=== PATIENT | male | born 1930 | race Two or more races ===

== ENCOUNTER 2019-09-16 15:32 | Inpatient (IN) | payer MEDICARE, MEDICAID ==
[~2019-09-16] VITALS: Ht 167.6 cm; Wt 66.5 kg
[~2019-09-16 15:32] MED LIST: AMLO10TA13 PO; CALC667C5 PO; HYDR50TA15 PO; MET50T PO
[2019-09-16 16:13] LABS: Urine Bacteria NONE SEEN /hpf (None Seen); Urine Blood TRACE /uL (Negative); Urine Specific Gravity 1.012 (1.001-1.035); Urine WBC 2 /hpf (0 - 3)
[2019-09-16 16:55] LABS: Red Blood Cells 2.05 10^6/uL (4.5-5.90)
[2019-09-16 16:57] LABS: Hematocrit 21.4 % (41.0-53.0); Mean Corpuscular Hemoglobin 32.3 pg (28.0-32.0); Mean Corpuscular Volume 104.2 fL (80.0-100.0)
[2019-09-16 16:58] LABS: Platelet Count (auto) 22 10^3/uL (140-450); Red Cell Distribution Width 16.3 % (11.8-14.3)
[2019-09-16 17:04] LABS: Albumin 3.2 g/dL (3.4-5.0); Calcium 8.5 mg/dL (8.5-10.1); Potassium 4.3 mmol/L (3.5-5.1)
[2019-09-16 17:07] LABS: BUN/Creatinine Ratio 5.8; Bilirubin, Total 0.7 mg/dL (0.2-1.0)
[2019-09-16 17:08] LABS: Hemoglobin 6.6 g/dL (13.5-17.5); White Blood Cell 117.1 10^3/uL (4.4-10.8)
[2019-09-16 17:09] LABS: Basophils % (manual) 0 (0.0-2.0); Eosinophils % (manual) 0 (0-7); Metamyelocytes % 0; Myelocytes % 0; Promyelocytes % 0; Reactive Lymphocytes 0
[2019-09-16] MEDS ORDERED: SODIUM CHLORIDE 0.9% 1,000 ML IV ONE ×2 (18:31→19:15)
[2019-09-16 18:42] LABS: Band Neutrophils % (manual) 1; Blast Cells 7; Lymphocytes % (manual) 87 (10.0-50.0); Monocytes % (manual) 2 (0-12)
[2019-09-16 19:11] LABS: Amylase 96 U/L (25-115); Lipase 125 U/L (73-393)
[2019-09-16 19:57] LABS: INR 1.04 (0.9-1.15); Partial Thromboplastin Time 25.4 sec (23.64-32.05)
[2019-09-16 23:10] VITALS: BP 173/57
[2019-09-16 23:15] VITALS: BP 164/58
[2019-09-16 23:20] VITALS: BP 180/54
[2019-09-16 23:25] VITALS: BP 167/52
[2019-09-16 23:40] VITALS: BP 165/56
[2019-09-17] VITALS (12 sets, daily range): BP systolic 100–183; BP diastolic 49–75
[2019-09-17] MEDS ORDERED: ONDANSETRON HCL 4 MG/2 ML VIAL IV PRN (02:00)
[2019-09-17] MEDS ORDERED: ACETAMINOPHEN 325 MG TAB PO PRN (02:00)
[2019-09-17] MEDS ORDERED: cloNIDine HCL 0.1 MG TAB PO ONE (05:00)
[2019-09-17 05:54] LABS: Red Cell Distribution Width 18.1 % (11.8-14.3)
[2019-09-17 05:59] LABS: Hematocrit 26.9 % (41.0-53.0); Hemoglobin 8.6 g/dL (13.5-17.5); Mean Corpuscular Hemoglobin 31.2 pg (28.0-32.0); Mean Corpuscular Hgb Conc. 32.1 g/dL (32.0-36.0); Mean Corpuscular Volume 97.2 fL (80.0-100.0); Red Blood Cells 2.77 10^6/uL (4.5-5.90)
[2019-09-17 06:14] LABS: Potassium 4.3 mmol/L (3.5-5.1)
[2019-09-17 06:29] LABS: BUN/Creatinine Ratio 6.7; Calcium 8.5 mg/dL (8.5-10.1)
[2019-09-17 06:35] LABS: Platelet Count (auto) 22 10^3/uL (140-450); White Blood Cell 117.8 10^3/uL (4.4-10.8)
[2019-09-17 06:37] LABS: Basophils % (manual) 0 (0.0-2.0); Metamyelocytes % 0; Myelocytes % 0; Promyelocytes % 0; Reactive Lymphocytes 0
[2019-09-17 08:08] LABS: Band Neutrophils % (manual) 1; Blast Cells 1; Eosinophils % (manual) 1 (0-7); Lymphocytes % (manual) 88 (10.0-50.0); Monocytes % (manual) 2 (0-12)
[2019-09-17] MEDS ORDERED: SODIUM CHL 0.9% 1000 ML BAG XX ONE (12:45)
[2019-09-17] MEDS ORDERED: hydrALAZINE HCL 25 MG TAB PO ONE (15:30)
[2019-09-17] MEDS ORDERED: METOPROLOL TARTRATE 50 MG TAB PO ONE (15:30)
[2019-09-17] MEDS ORDERED: amLODIPine BESYLATE 5 MG TAB PO ONE (15:30)
[2019-09-17] MEDS ORDERED: VANCOMYCIN HCL 500MG/5ML ORAL SOL GT ONE (15:45)
[2019-09-17] MEDS ORDERED: CIPROFLOXACIN 400MG/200ML 200 ML IV ONE (15:45)
[2019-09-17] MEDS ORDERED: metroNIDAZOLE 500 MG TAB PO ONE (15:45)
[2019-09-17] MEDS ORDERED: VANCOMYCIN HCL 125MG/5ML ORAL SOL PO ONE (16:00)
[2019-09-17] MEDS ORDERED: metroNIDAZOLE 500MG/100ML 100 ML IV ONE (16:00)
[2019-09-17] MEDS ORDERED: AMIODARONE HCL 150 MG in D5W 5% 100 ML IV ONE (17:30)
[2019-09-17] MEDS ORDERED: VANCOMYCIN HCL 500MG/5ML ORAL SOL PO SCH (22:00)
[2019-09-17] MEDS ORDERED: metroNIDAZOLE 500 MG TAB PO SCH (22:00)
[2019-09-17] MEDS: METOPROLOL TARTRATE 50 MG TAB PO SCH (22:09)
[2019-09-17] MEDS: VANCOMYCIN HCL 125MG/5ML ORAL SOL PO SCH (22:10)
[2019-09-17] MEDS: hydrALAZINE HCL 25 MG TAB PO SCH (22:10)
[2019-09-17] MEDS: metroNIDAZOLE 500MG/100ML 100 ML IV SCH (22:11)
[2019-09-18] VITALS (12 sets, daily range): BP systolic 103–159; BP diastolic 45–83
[2019-09-18] MEDS: VANCOMYCIN HCL 125MG/5ML ORAL SOL PO SCH ×4 (05:50→21:46)
[2019-09-18] MEDS: metroNIDAZOLE 500MG/100ML 100 ML IV SCH ×3 (05:50→21:46)
[2019-09-18] MEDS: hydrALAZINE HCL 25 MG TAB PO SCH ×3 (05:51→21:46)
[2019-09-18 06:46] LABS: % Iron Saturation 96.4 % (20-55)
[2019-09-18 07:07] LABS: Ferritin 1095.5 ng/mL (10-322)
[2019-09-18 07:08] LABS: Folate (Folic Acid) 16.96 ng/mL (5.38-24)
[2019-09-18 08:47] LABS: Free T4 (Free Thyroxine) 1.02 ng/dL (0.89-1.76)
[2019-09-18 08:48] LABS: Free T3 2.95 pg/mL (2.3-4.2)
[2019-09-18] MEDS: CIPROFLOXACIN 400MG/200ML 200 ML IV SCH (09:08)
[2019-09-18] MEDS: METOPROLOL TARTRATE 50 MG TAB PO SCH ×2 (09:09→21:46)
[2019-09-18] MEDS: amLODIPine BESYLATE 5 MG TAB PO SCH (09:09)
[2019-09-18 14:11] LABS: Red Cell Distribution Width 18.1 % (11.8-14.3)
[2019-09-18 14:17] LABS: Hematocrit 25.9 % (41.0-53.0); Mean Corpuscular Hgb Conc. 30.8 g/dL (32.0-36.0); Mean Corpuscular Volume 97.4 fL (80.0-100.0); Red Blood Cells 2.66 10^6/uL (4.5-5.90)
[2019-09-18 14:27] LABS: Albumin 2.8 g/dL (3.4-5.0); Potassium 3.8 mmol/L (3.5-5.1)
[2019-09-18 14:31] LABS: Bilirubin, Total 0.5 mg/dL (0.2-1.0); Total Protein 6.1 g/dL (6.4-8.2); White Blood Cell 101.1 10^3/uL (4.4-10.8)
[2019-09-18 14:32] LABS: Platelet Count (auto) 11 10^3/uL (140-450)
[2019-09-18 14:46] LABS: Band Neutrophils % (manual) 0; Basophils % (manual) 0 (0.0-2.0); Blast Cells 0; Metamyelocytes % 0; Myelocytes % 0; Promyelocytes % 0; Reactive Lymphocytes 0
[2019-09-18 14:51] LABS: Eosinophils % (manual) 1 (0-7); Lymphocytes % (manual) 85 (10.0-50.0); Monocytes % (manual) 3 (0-12)
[2019-09-18] MEDS ORDERED: ALLOPURINOL 100 MG TAB PO SCH (19:15)
[2019-09-18] MEDS ORDERED: DEXTROSE (50%) 50ML SYRG IV PRN (19:15)
[2019-09-18] MEDS: InsuLIN REG 1unit/0.01ml Soln (100units/ml) SC SCH (22:00)
[2019-09-18] MEDS: ACCU-CHEK COMFORT CURVE STRIP VI SCH (22:02)
[2019-09-19] VITALS (7 sets, daily range): BP systolic 88–122; BP diastolic 45–57
[2019-09-19] MEDS ORDERED: SODIUM CHLORIDE 0.9% 500 ML IV ONE (05:30)
[2019-09-19] MEDS: VANCOMYCIN HCL 125MG/5ML ORAL SOL PO SCH (05:32)
[2019-09-19] MEDS: metroNIDAZOLE 500MG/100ML 100 ML IV SCH (05:32)
[2019-09-19] MEDS: hydrALAZINE HCL 25 MG TAB PO SCH ×3 (05:33→21:45)
[2019-09-19 06:01] LABS: Hemoglobin 7.3 g/dL (13.5-17.5); Red Cell Distribution Width 17.8 % (11.8-14.3)
[2019-09-19 06:11] LABS: Hematocrit 22.7 % (41.0-53.0); Mean Corpuscular Hemoglobin 31.2 pg (28.0-32.0); Mean Corpuscular Hgb Conc. 32.3 g/dL (32.0-36.0); Mean Corpuscular Volume 96.6 fL (80.0-100.0); Platelet Count (auto) 27 10^3/uL (140-450); Red Blood Cells 2.35 10^6/uL (4.5-5.90)
[2019-09-19 06:21] LABS: Potassium 3.6 mmol/L (3.5-5.1)
[2019-09-19 06:28] LABS: Albumin 2.9 g/dL (3.4-5.0); BUN/Creatinine Ratio 6.2; Bilirubin, Total 0.6 mg/dL (0.2-1.0); Calcium 7.8 mg/dL (8.5-10.1)
[2019-09-19] MEDS: InsuLIN REG 1unit/0.01ml Soln (100units/ml) SC SCH ×4 (06:41→21:54)
[2019-09-19] MEDS: ACCU-CHEK COMFORT CURVE STRIP VI SCH ×4 (06:42→21:46)
[2019-09-19 06:58] LABS: Basophils % (manual) 0 (0.0-2.0); Eosinophils % (manual) 0 (0-7); Metamyelocytes % 0; Myelocytes % 0; Promyelocytes % 0; Reactive Lymphocytes 0; White Blood Cell 79.9 10^3/uL (4.4-10.8)
[2019-09-19] MEDS ORDERED: SODIUM CHL 0.9% 1000 ML BAG XX ONE (07:00)
[2019-09-19 07:55] LABS: Band Neutrophils % (manual) 2; Blast Cells 1; Lymphocytes % (manual) 90 (10.0-50.0); Monocytes % (manual) 3 (0-12)
[2019-09-19] MEDS: METOPROLOL TARTRATE 50 MG TAB PO SCH ×2 (10:00→21:45)
[2019-09-19] MEDS: amLODIPine BESYLATE 5 MG TAB PO SCH (10:00)
[2019-09-19] MEDS: CIPROFLOXACIN 400MG/200ML 200 ML IV SCH (10:50)
[2019-09-19] MEDS: predniSONE 20 MG TAB PO SCH (10:51)
[2019-09-19] MEDS ORDERED: metroNIDAZOLE 500MG/100ML 100 ML IV SCH (17:00)
[2019-09-19] MEDS ORDERED: VANCOMYCIN HCL 125MG/5ML ORAL SOL PO SCH (18:00)
[2019-09-19] MEDS ORDERED: LOPERAMIDE HCL 2 MG CAP PO ONE (20:15)
[2019-09-19] MEDS ORDERED: EPOETIN ALFA 4,000 UNIT/ML VL SC ONE (21:00)
[2019-09-19] MEDS: metroNIDAZOLE 500 MG TAB PO SCH (21:44)
[2019-09-20 05:26] LABS: Hemoglobin 7.7 g/dL (13.5-17.5); Mean Corpuscular Volume 96.5 fL (80.0-100.0)
[2019-09-20 05:31] LABS: Hematocrit 24.1 % (41.0-53.0); Mean Corpuscular Hemoglobin 30.7 pg (28.0-32.0); Mean Corpuscular Hgb Conc. 31.8 g/dL (32.0-36.0); Platelet Count (auto) 27 10^3/uL (140-450); Red Cell Distribution Width 17.9 % (11.8-14.3)
[2019-09-20 05:34] LABS: Band Neutrophils % (manual) 0; Basophils % (manual) 0 (0.0-2.0); Blast Cells 0; Eosinophils % (manual) 0 (0-7); Metamyelocytes % 0; Monocytes % (manual) 0 (0-12); Myelocytes % 0; Promyelocytes % 0; White Blood Cell 98.8 10^3/uL (4.4-10.8)
[2019-09-20] MEDS: hydrALAZINE HCL 25 MG TAB PO SCH ×2 (05:57→14:00)
[2019-09-20 06:00] VITALS: BP 108/48
[2019-09-20] MEDS: InsuLIN REG 1unit/0.01ml Soln (100units/ml) SC SCH ×2 (06:12→11:30)
[2019-09-20] MEDS: metroNIDAZOLE 500 MG TAB PO SCH ×2 (06:12→14:06)
[2019-09-20] MEDS: ACCU-CHEK COMFORT CURVE STRIP VI SCH ×2 (06:12→13:03)
[2019-09-20 08:49] LABS: Hepatitis B Surface Antibody Negative
[2019-09-20 09:02] VITALS: BP 106/53
[2019-09-20] MEDS ORDERED: LOPERAMIDE HCL 2 MG CAP PO PRN (09:45)
[2019-09-20] MEDS: amLODIPine BESYLATE 5 MG TAB PO SCH (10:00)
[2019-09-20] MEDS: METOPROLOL TARTRATE 50 MG TAB PO SCH ×2 (10:00→14:07)
[2019-09-20 10:07] LABS: Lymphocytes % (manual) 91 (10.0-50.0)
[2019-09-20 10:08] LABS: Reactive Lymphocytes 5
[2019-09-20] MEDS: predniSONE 20 MG TAB PO SCH (10:25)
[2019-09-20 13:00] VITALS: BP 114/53
[2019-09-20 13:04] LABS: Hepatitis B Surface Antigen Negative (Negative); Hepatitis C Antibody Negative (Negative)
== END 2019-09-20 15:55 | disposition home or self-care (01) | DRG 391 ==
LOC: ER 15:32 → OVERFLOW 15:33 → TELE-EAST 09-17 21:14
PROVIDERS: ADMIT Hospitalist; ATTEND Internal Medicine Nephrology
PROC: 30240N1 Transfusion of Nonautologous Red Blood Cells into Central Vein, Open Approach (ICD-10-PCS; principal; 2019-09-16)
PROC: 5A1D70Z Performance of Urinary Filtration, Intermittent, Less than 6 Hours Per Day (ICD-10-PCS; 2019-09-17)
PROC: 30243R1 Transfusion of Nonautologous Platelets into Central Vein, Percutaneous Approach (ICD-10-PCS; 2019-09-18)
PROC: 5A1D70Z Performance of Urinary Filtration, Intermittent, Less than 6 Hours Per Day (ICD-10-PCS; 2019-09-19)
DX: A08.4 Viral intestinal infection, unspecified (principal); N18.6 End stage renal disease; I13.2 Hypertensive heart and chronic kidney disease with heart failure and with stage 5 chronic kidney disease, or end stage renal disease; C91.10 Chronic lymphocytic leukemia of B-cell type not having achieved remission; I50.30 Unspecified diastolic (congestive) heart failure; E86.0 Dehydration; I48.0 Paroxysmal atrial fibrillation; R19.5 Other fecal abnormalities; R16.1 Splenomegaly, not elsewhere classified; D69.6 Thrombocytopenia, unspecified; I48.91 Unspecified atrial fibrillation; D50.0 Iron deficiency anemia secondary to blood loss (chronic); Z99.2 Dependence on renal dialysis; Z90.49 Acquired absence of other specified parts of digestive tract; Z82.49 Family history of ischemic heart disease and other diseases of the circulatory system; Z79.899 Other long term (current) drug therapy; Z91.19 Patient's noncompliance with other medical treatment and regimen
CPT/HCPCS: 36415; 36430; 71045; 74176; 80048; 80053; 80061; 81001; 82150; 82270; 82607; 82705; 82728; 82746; 82962; 83036; 83540; 83550; 83605; 83615; 83690; 83735; 84439; 84443; 84481; 84484; 84550; 85007; 85025; 85027; 85048; 85610; 85730; 86706; 86803; 86850; 86880; 86900; 86901; 86920; 87040; 87045; 87081; 87177; 87340; 87427; 87493; 90935; 93005; 93306; 96361; 96374; G0378; J2405; J3490; J7060

== ENCOUNTER 2019-10-02 12:35 | Inpatient (IN) | payer MEDICARE, MEDICAID ==
[~2019-10-02] VITALS: Ht 167.6 cm; Wt 66.0 kg
[2019-10-02 14:14] LABS: BUN/Creatinine Ratio 12.6; Calcium 7.3 mg/dL (8.5-10.1)
[2019-10-02 14:17] LABS: Potassium 6.9 mmol/L (3.5-5.1)
[2019-10-02 14:22] LABS: Bilirubin, Total 0.7 mg/dL (0.2-1.0); Total Protein 6.2 g/dL (6.4-8.2)
[2019-10-02] MEDS ORDERED: SODIUM BICARBONATE 8.4 % INJ 50ML VIAL IV ONE (14:30)
[2019-10-02] MEDS ORDERED: ALBUTEROL SULF 2.5 MG/0.5ML(0.5%) NEB SOLN HHN ONE (14:30)
[2019-10-02] MEDS ORDERED: CALCIUM GLUC 4.65meq/50ml D5AE 50 ML IV ONE (14:30)
[2019-10-02] MEDS ORDERED: SODIUM CHL 0.9% 1000 ML BAG XX ONE (15:00)
[2019-10-02 15:15] LABS: Hematocrit 17.8 % (41.0-53.0); Mean Corpuscular Hemoglobin 27.3 pg (28.0-32.0); Mean Corpuscular Hgb Conc. 29.7 g/dL (32.0-36.0); Mean Corpuscular Volume 92.1 fL (80.0-100.0); Platelet Count (auto) 23 10^3/uL (140-450); Red Blood Cells 1.93 10^6/uL (4.5-5.90); Red Cell Distribution Width 18.4 % (11.8-14.3)
[2019-10-02 15:47] LABS: Hemoglobin 5.3 g/dL (13.5-17.5); White Blood Cell 429.4 10^3/uL (4.4-10.8)
[2019-10-02 15:48] LABS: Band Neutrophils % (manual) 0; Basophils % (manual) 0 (0.0-2.0); Eosinophils % (manual) 0 (0-7); Metamyelocytes % 0; Myelocytes % 0; Promyelocytes % 0
[2019-10-02] MEDS ORDERED: DEXTROSE (50%) 50ML SYRG IV ONE (17:30)
[2019-10-02] MEDS ORDERED: ACETAMINOPHEN 500 MG TAB PO PRN (17:30)
[2019-10-02] MEDS ORDERED: LABETALOL HCL 5 MG/ML 4ML SYRINGE IV PRN (17:30)
[2019-10-02] MEDS ORDERED: ONDANSETRON HCL 4 MG/2 ML VIAL IV PRN (17:30)
[2019-10-02] MEDS ORDERED: SODIUM ZIRCONIUM CYCL 10 GM PAK PO ONE (17:30)
[2019-10-02] MEDS ORDERED: MORPHINE SULF INJ 2 MG/ML SYRINGE 1ML IV PRN ×2 (17:30)
[2019-10-02] MEDS ORDERED: HYDROcodone-ACET 5/325MG TAB PO PRN (17:30)
[2019-10-02] MEDS ORDERED: NITROGLYCERIN 0.4 MG SL TAB SL PRN (17:30)
[2019-10-02] MEDS ORDERED: InsuLIN REG 1unit/0.01ml Soln (100units/ml) IV ONE (17:30)
[2019-10-02 19:37] LABS: Lymphocytes % (manual) 82 (10.0-50.0)
[2019-10-02 19:38] LABS: Blast Cells 1; Monocytes % (manual) 2 (0-12); Reactive Lymphocytes 10
[2019-10-02] MEDS ORDERED: ALBUMIN 25% 100 ML IV ONE (20:00)
[2019-10-02 22:30] LABS: BUN/Creatinine Ratio 11.9; Calcium 7.4 mg/dL (8.5-10.1)
[2019-10-02 22:43] LABS: Potassium 5.7 mmol/L (3.5-5.1)
[2019-10-02 23:15] VITALS: BP 121/56
--- NOTE | 2019-10-02 23:15 | NUR ---
Telemetry admit from [facility] CARLIEINEZ admitted to Telemetry unit. Patient oriented to CONSTANZA LOPEZ OCA, primary RN, unit, room, bed, and unit policies regarding patient care and visiting hours. Patient now on continuous telemetry monitoring, tele box #68 and telemetry reading on arrival to unit is sinus tachycardia 104. Patient weighed by bedscale and encouraged to call if they need something. All questions and concerns addressed, patient verbalized understanding. Bed in lowest locked position, call light within reach, side rails up x2, fall precautions in place. Will continue to monitor Q1hr and PRN.
[2019-10-03] VITALS (12 sets, daily range): BP systolic 96–143; BP diastolic 48–75
--- NOTE | 2019-10-03 07:45 | NUR ---
TELEMETRY RECEIVED CALL FROM MONITOR TECHS INFORMING ME PATIENT IS HAVING SHORT RUNS OF VTACH, COUPLETS, AND MULTIPLE PAUSES. PATIENT ASSESSED AND FOUND TO BE ASYMPTOMATIC AND STABLE. WILL NOTIFY MD AND CONTINUE TO MONITOR.
--- NOTE | 2019-10-03 08:00 | NUR ---
OPENING NOTE ASSUMED CARE OF PATIENT AWAKE AND ALERT X3. NO S/S OF DISTRESS NOTED OR COMPLAINTS OF PAIN. PATIENT UPDATED ON POC FOR THE DAY AND ALL QUESTIONS ANSWERED. BED IS IN LOWEST, LOCKED POSITION WITH SIDE RAILS UP X2 AND CALL LIGHT WITHIN REACH. WILL CONTINUE TO MONITOR Q1H AND PRN.
[2019-10-03 08:26] LABS: Hematocrit 19.4 % (41.0-53.0); Mean Corpuscular Hemoglobin 26.2 pg (28.0-32.0); Mean Corpuscular Hgb Conc. 28.9 g/dL (32.0-36.0); Mean Corpuscular Volume 90.7 fL (80.0-100.0); Red Blood Cells 2.14 10^6/uL (4.5-5.90)
[2019-10-03 08:28] LABS: Albumin 3.4 g/dL (3.4-5.0); Calcium 7.4 mg/dL (8.5-10.1)
--- NOTE | 2019-10-03 08:30 | NUR ---
CRITICAL LAB VALUE RECEIVED CALL FROM HEMATOLOGY FOR CRITICAL LAB VALUE OF A WBC 468.6 AND HGB 5.6. WILL PUT PAGE OUT TO TO NOTIFY.
[2019-10-03 08:31] LABS: BUN/Creatinine Ratio 9.5; Total Protein 6.3 g/dL (6.4-8.2)
[2019-10-03 08:36] LABS: Hemoglobin 5.6 g/dL (13.5-17.5); Platelet Count (auto) 19 10^3/uL (140-450); White Blood Cell 468.6 10^3/uL (4.4-10.8)
[2019-10-03 08:38] LABS: Band Neutrophils % (manual) 0; Basophils % (manual) 0 (0.0-2.0); Blast Cells 0; Eosinophils % (manual) 0 (0-7); Metamyelocytes % 0; Myelocytes % 0; Promyelocytes % 0
[2019-10-03 08:42] LABS: Potassium 6.4 mmol/L (3.5-5.1)
--- NOTE | 2019-10-03 08:44 | NUR ---
CRITICAL LAB VALUE RECEIVED CALL FROM CHEMISTRY REGARDING PATIENT CRITICAL POTASSIUM OF 6.4. WILL NOTIFY MD AND CONTINUE TO MONITOR.
--- NOTE | 2019-10-03 10:15 | NUR ---
PAGED PAGED DR LOPEZ REGARDING CRITICAL LABS, ARRYTHMIAS, AND FOR ORDERS. AWAITING CALL BACK.
[2019-10-03] MEDS: FAMOTIDINE 20 MG TAB PO SCH (10:37)
--- NOTE | 2019-10-03 11:00 | NUR ---
AT BEDSIDE DR UP AT BEDSIDE. UPDATED DAUGHTER TARUN BY TELEPHONE.
[2019-10-03 11:31] LABS: Lymphocytes % (manual) 94 (10.0-50.0); Monocytes % (manual) 1 (0-12); Reactive Lymphocytes 2
--- NOTE | 2019-10-03 11:40 | NUR ---
AT BEDSIDE DR ROMERO IN TO SEE PATIENT.
--- NOTE | 2019-10-03 11:45 | NUR ---
PAGED REPAGED DR LOPEZ REGARDING 6.4 POTASSIUM. AWAITING CALL BACK
--- NOTE | 2019-10-03 12:15 | NUR ---
DR LOPEZ RECEIVED CALL BACK FROM DR LOPEZ AND UPDATED HER ON PATIENT'S STATUS. SHE STATED SHE WILL PUT IN ORDER FOR PATIENT TO RECEIVE DIALYSIS TODAY.
--- NOTE | 2019-10-03 12:50 | NUR ---
DIALYSIS DIALYSIS NURSE AT BEDSIDE STARTING HD
--- NOTE | 2019-10-03 14:10 | NUR ---
PRBC 1 UNIT PRBC STARTED. VERIFIED WITH FELLOW RN AND UNIT IS BEING GIVEN BY DIALYSIS NURSE.
[2019-10-03] MEDS: methylPREDNISolone SOD SUCC 125 MG/2 ML VL IV SCH ×2 (14:40→21:40)
--- NOTE | 2019-10-03 15:50 | NUR ---
DIALYSIS END HD FINISHED AT 1550. 1,485 ML OUT. BP 143/70 WITH A HR OF 102. PATIENT TOLERATED WELL. WILL CONTINUE TO MONITOR.
--- NOTE | 2019-10-03 17:30 | NUR ---
FISTULA WHILE ROUNDING I NOTICED PATIENT'S LEFT ARM FISTULA HAD SATURATED THE DRESSING AND WAS DRIPPING ON THE FLOOR. PRESSURE HELD FOR 20 MINUTES SITE WOULD NOT STOP BLEEDING HEAVILY. SITE WRAPPED TIGHTLY. WILL MONITOR VERY CLOSELY.
[2019-10-03] MEDS: IBRUTINIB 280 MG PO SCH (18:07)
--- NOTE | 2019-10-03 19:30 | NUR ---
Opening Shift Note Assumed care of patient, awake and alert x4. No S/S of distress/SOB or pain. Call light is within reach, side rails up x2, bed is in lowest position, bed alarm is on. Dressing to right upper arm is C/D/I. Instructed on POC and to call for assist PRN, will continue to monitor for changes Q1hr and PRN.
[2019-10-04] VITALS (15 sets, daily range): BP systolic 114–145; BP diastolic 57–90
[2019-10-04] MEDS: methylPREDNISolone SOD SUCC 125 MG/2 ML VL IV SCH ×3 (05:37→21:35)
[2019-10-04 05:56] LABS: Hemoglobin 7.2 g/dL (13.5-17.5)
[2019-10-04 06:02] LABS: Hematocrit 22.3 % (41.0-53.0); Mean Corpuscular Hemoglobin 29.3 pg (28.0-32.0); Mean Corpuscular Hgb Conc. 32.3 g/dL (32.0-36.0); Mean Corpuscular Volume 90.6 fL (80.0-100.0); Red Blood Cells 2.46 10^6/uL (4.5-5.90); Red Cell Distribution Width 16.1 % (11.8-14.3)
[2019-10-04 06:15] LABS: Albumin 3.1 g/dL (3.4-5.0); BUN/Creatinine Ratio 9.7; Calcium 7.6 mg/dL (8.5-10.1); Potassium 4.9 mmol/L (3.5-5.1)
[2019-10-04 06:22] LABS: Total Protein 6.2 g/dL (6.4-8.2)
--- NOTE | 2019-10-04 06:28 | NUR ---
Critical Lab Received a call from Devonte Barbosa in lab, critical lab values for WBC: 368.0 and platelet count: 8. Value read back and verified. Will inform hospitalist.
[2019-10-04 06:29] LABS: Platelet Count (auto) 8 10^3/uL (140-450)
[2019-10-04 06:30] LABS: Basophils % (manual) 0 (0.0-2.0); Blast Cells 0; Eosinophils % (manual) 0 (0-7); Metamyelocytes % 0; Myelocytes % 0; Promyelocytes % 0
--- NOTE | 2019-10-04 06:47 | NUR ---
Fermín Mane MENTAL HEALTH PRACTITIONER called back, no new orders received, will endorse care to dayshift RN.
[2019-10-04 07:31] LABS: Band Neutrophils % (manual) 1; Lymphocytes % (manual) 89 (10.0-50.0); Monocytes % (manual) 1 (0-12); Reactive Lymphocytes 2
[2019-10-04 11:21] LABS: Mean Corpuscular Hemoglobin 29.5 pg (28.0-32.0); Mean Corpuscular Hgb Conc. 32.5 g/dL (32.0-36.0); Red Cell Distribution Width 16.4 % (11.8-14.3)
[2019-10-04 11:27] LABS: Hematocrit 20.3 % (41.0-53.0); Mean Corpuscular Volume 90.7 fL (80.0-100.0); Red Blood Cells 2.24 10^6/uL (4.5-5.90)
[2019-10-04 11:37] LABS: Hemoglobin 6.6 g/dL (13.5-17.5)
[2019-10-04 11:38] LABS: Platelet Count (auto) 14 10^3/uL (140-450); White Blood Cell 328.6 10^3/uL (4.4-10.8)
[2019-10-04 11:40] LABS: Albumin 3.1 g/dL (3.4-5.0); Band Neutrophils % (manual) 0; Basophils % (manual) 0 (0.0-2.0); Blast Cells 0; Calcium 7.5 mg/dL (8.5-10.1); Eosinophils % (manual) 0 (0-7); Metamyelocytes % 0; Myelocytes % 0; Potassium 4.4 mmol/L (3.5-5.1); Promyelocytes % 0
[2019-10-04 11:43] LABS: BUN/Creatinine Ratio 9.7; Bilirubin, Total 0.9 mg/dL (0.2-1.0); Total Protein 6.3 g/dL (6.4-8.2)
--- NOTE | 2019-10-04 11:46 | NUR ---
CRITICAL VALUE MD ROMERO MADE AWARE OF CRITICAL LAB VALUES NEW ORDERS NOTED FOR ONLY 1 UNIT PLT AND TO ORDER 2 UNITS PRBC, BLOOD BANK NOTIFIED
[2019-10-04 12:04] LABS: Lymphocytes % (manual) 91 (10.0-50.0); Monocytes % (manual) 2 (0-12); Reactive Lymphocytes 3
--- NOTE | 2019-10-04 13:52 | NUR ---
PLT TRANSFUSION STARTED ON PT
[2019-10-04] MEDS: IBRUTINIB 280 MG PO SCH (18:20)
--- NOTE | 2019-10-04 19:45 | NUR ---
Opening Shift Note Assumed care of patient, awake and alert. No S/S of distress/SOB or pain. Instructed on POC and to call for assist PRN, will continue to monitor for changes Q1hr and PRN.Blood transfusion is done, no side effect noted.
[2019-10-05] VITALS (12 sets, daily range): BP systolic 106–135; BP diastolic 55–74
--- NOTE | 2019-10-05 02:25 | NUR ---
Rport given to Gemma Hanson to assume the care, patient is resting eyes closed no distress.
--- NOTE | 2019-10-05 02:25 | NUR ---
Assumed care of patient. Report received by Lyric ROLON. Patient is sleepy but alert and oriented X 4, no S/S of SOB, pain, or distress. Bed is low, locked, with two side rails raised, and call baum is within reach. Patient connected to lunchroom monitor # 68 with HR 85 bpm. Instructed patient on POC and to call for assistance. Will continue to monitor Q 1 hour and PRN.
[2019-10-05] MEDS: methylPREDNISolone SOD SUCC 125 MG/2 ML VL IV SCH ×2 (05:59→13:50)
--- NOTE | 2019-10-05 06:00 | NUR ---
Received call from Pura dialysis nurse, she confirmed patient will be receiving dialysis today, stated she will obtain order from for dialysis to be done. Requested morning meds to be held prior to dialysis. Addendum: 10/05/19 at 0633 by COCO KIRBY RN RN Nurse Cyr.
--- NOTE | 2019-10-05 06:33 | NUR ---
Dialysis nurse at the bedside.
[2019-10-05 06:50] LABS: Hemoglobin 8.9 g/dL (13.5-17.5); Mean Corpuscular Hemoglobin 29.2 pg (28.0-32.0); Red Blood Cells 3.03 10^6/uL (4.5-5.90); Red Cell Distribution Width 16.2 % (11.8-14.3)
[2019-10-05 06:54] LABS: Hematocrit 26.7 % (41.0-53.0); Mean Corpuscular Hgb Conc. 33.2 g/dL (32.0-36.0)
[2019-10-05 07:09] LABS: Albumin 3.2 g/dL (3.4-5.0); Calcium 7.3 mg/dL (8.5-10.1)
[2019-10-05 07:13] LABS: BUN/Creatinine Ratio 12.7; Total Protein 6.2 g/dL (6.4-8.2)
[2019-10-05] MEDS ORDERED: SODIUM CHL 0.9% 1000 ML BAG XX ONE (07:15)
[2019-10-05 07:17] LABS: White Blood Cell 303.1 10^3/uL (4.4-10.8)
[2019-10-05 07:18] LABS: Platelet Count (auto) 15 10^3/uL (140-450)
[2019-10-05 07:20] LABS: Band Neutrophils % (manual) 0; Basophils % (manual) 0 (0.0-2.0); Blast Cells 0; Eosinophils % (manual) 0 (0-7); Metamyelocytes % 0; Myelocytes % 0; Promyelocytes % 0
--- NOTE | 2019-10-05 07:28 | NUR ---
Received critical lab value from Columba in lab: WBC 303.1, Platelet count 15, and Potassium 5.7. Will page hospitalist per hospital protocol.
[2019-10-05 07:29] LABS: Potassium 5.7 mmol/L (3.5-5.1)
--- NOTE | 2019-10-05 07:30 | NUR ---
Opening Shift Note Assumed care of patient, awake and alert. No S/S of distress/SOB or pain. Ongoing hemodialysis. NOted Amharic speaking only. Instructed on POC and to call for assist PRN, will continue to monitor for changes Q1hr and PRN.
--- NOTE | 2019-10-05 07:35 | NUR ---
Paged hospitalist Enedina Mane regarding critical lab values. -
--- NOTE | 2019-10-05 07:40 | NUR ---
CONCRETE ROD BUSTER Fermín Mane called back, informed him of critical lab values, confirmed that the patient is currently being dialyzed. no new orders received,
[2019-10-05 07:56] LABS: Lymphocytes % (manual) 90 (10.0-50.0); Monocytes % (manual) 2 (0-12); Reactive Lymphocytes 2
--- NOTE | 2019-10-05 09:55 | NUR ---
HD DONE, 2.5L FLUID OUT. BP 139/82MMHG, HR 80/MIN. PATIENT STABLE.
[2019-10-05] MEDS: FAMOTIDINE 20 MG TAB PO SCH (11:14)
--- NOTE | 2019-10-05 11:45 | NUR ---
DR Tsering Adam at bedside. Received verbal order to transfuse 1 more unit of platelet.
--- NOTE | 2019-10-05 12:50 | NUR ---
BLOOD TRANSFUSION OF PLATELET STARTED. WILL MONITOR.
--- NOTE | 2019-10-05 13:27 | NUR ---
WILL GIVE SCHEDULED SOLU-MEDROL IV AFTER PLATELET TRANSFUSION.
--- NOTE | 2019-10-05 13:49 | NUR ---
PLATELET TRANSFUSION DONE. PATIENT TOLERATED WELL.
--- NOTE | 2019-10-05 16:20 | NUR ---
assessment Patient is a 88 year old male who is confused. I have called patients next of kin Allison and left a message for a return call back. Waiting on return call now. Addendum: 10/05/19 at 1621 by Bev Flores SS Amended: Links added.
[2019-10-05] MEDS ORDERED: IBRUTINIB 280 MG PO SCH (18:00)
[2019-10-06 05:15] VITALS: BP 133/67
[2019-10-06 06:16] LABS: Hematocrit 24.7 % (41.0-53.0); Hemoglobin 8.3 g/dL (13.5-17.5); Mean Corpuscular Hgb Conc. 33.7 g/dL (32.0-36.0); Platelet Count (auto) 26 10^3/uL (140-450)
[2019-10-06 06:21] LABS: Mean Corpuscular Hemoglobin 29.9 pg (28.0-32.0); Mean Corpuscular Volume 88.6 fL (80.0-100.0); Red Blood Cells 2.79 10^6/uL (4.5-5.90); Red Cell Distribution Width 16.1 % (11.8-14.3)
[2019-10-06 06:27] LABS: Band Neutrophils % (manual) 0; Basophils % (manual) 0 (0.0-2.0); Blast Cells 0; Eosinophils % (manual) 0 (0-7); Metamyelocytes % 0; Myelocytes % 0; Promyelocytes % 0; White Blood Cell 244.7 10^3/uL (4.4-10.8)
--- NOTE | 2019-10-06 06:27 | NUR ---
Critical lab: Received a critical lab value of 244.7 WBC's. Improving from prior WBC.
[2019-10-06 06:30] LABS: Calcium 7.3 mg/dL (8.5-10.1); Potassium 3.7 mmol/L (3.5-5.1)
[2019-10-06 06:33] LABS: BUN/Creatinine Ratio 15.7; Total Protein 5.8 g/dL (6.4-8.2)
[2019-10-06 06:44] LABS: Lymphocytes % (manual) 94 (10.0-50.0); Monocytes % (manual) 1 (0-12); Reactive Lymphocytes 1
--- NOTE | 2019-10-06 07:22 | NUR ---
Opening Shift Note Assumed care of patient, awake and alert. Pt is Persian speaking only. No S/S of distress/SOB or pain. Instructed on POC and to call for assist PRN, will continue to monitor for changes Q1hr and PRN.
[2019-10-06] MEDS ORDERED: predniSONE 5 MG TAB PO SCH (08:00)
[2019-10-06 09:00] VITALS: BP 126/63
--- NOTE | 2019-10-06 09:45 | NUR ---
ROUNDING MD German ROMERO AT BEDSIDE. ALL QUESTIONS AND CONCERNS ADDRESSED AT THIS TIME.
[2019-10-06 10:00] VITALS: BP 126/63
[2019-10-06 13:00] VITALS: BP 138/57
--- NOTE | 2019-10-06 13:02 | NUR ---
DAUGHTER TARUN UPDATED ON POC AND DISCHARGE PLAN PASSWORD VERIFIED.
--- NOTE | 2019-10-06 14:23 | NUR ---
Discharge instructions given as ordered. Encourage to follow up with PMD as instructed. All questions and concerns addressed. Patient verbalized understanding. Medication reconciliation form completed and copy given to patient. Home medications held in Pharmacy returned to patient. IV removed with catheter intact, pressure dressing applied. Telemetry unit returned to ICU. Patient taken to vehicle via wheelchair with all personal belongings, accompanied by staff and family member. No distress noted at time of departure.
== END 2019-10-06 14:23 | disposition home or self-care (01) | DRG 811 ==
LOC: ER 12:35 → TELE 12:36 → TELE-WESTW 23:08
PROVIDERS: ADMIT Nurse Practitioner Acute Care; ATTEND Family Medicine
PROC: 5A1D70Z Performance of Urinary Filtration, Intermittent, Less than 6 Hours Per Day (ICD-10-PCS; principal; 2019-10-02)
PROC: 5A1D70Z Performance of Urinary Filtration, Intermittent, Less than 6 Hours Per Day (ICD-10-PCS; 2019-10-03)
PROC: 30233N1 Transfusion of Nonautologous Red Blood Cells into Peripheral Vein, Percutaneous Approach (ICD-10-PCS; 2019-10-03)
PROC: 30233R1 Transfusion of Nonautologous Platelets into Peripheral Vein, Percutaneous Approach (ICD-10-PCS; 2019-10-04)
PROC: 5A1D70Z Performance of Urinary Filtration, Intermittent, Less than 6 Hours Per Day (ICD-10-PCS; 2019-10-05)
DX: D64.9 Anemia, unspecified (principal); N18.6 End stage renal disease; C91.10 Chronic lymphocytic leukemia of B-cell type not having achieved remission; E44.0 Moderate protein-calorie malnutrition; I12.0 Hypertensive chronic kidney disease with stage 5 chronic kidney disease or end stage renal disease; E87.1 Hypo-osmolality and hyponatremia; E87.5 Hyperkalemia; E78.5 Hyperlipidemia, unspecified; E87.8 Other disorders of electrolyte and fluid balance, not elsewhere classified; I48.0 Paroxysmal atrial fibrillation; D69.6 Thrombocytopenia, unspecified; Z99.2 Dependence on renal dialysis; Z91.19 Patient's noncompliance with other medical treatment and regimen; Z87.891 Personal history of nicotine dependence; Z82.49 Family history of ischemic heart disease and other diseases of the circulatory system; Z68.23 Body mass index [BMI] 23.0-23.9, adult
CPT/HCPCS: 36415; 71045; 80048; 80053; 83010; 83615; 84484; 85007; 85025; 85027; 85045; 86850; 86880; 86900; 86901; 86920; 87081; 90935; 93005; 94640; G0378; J0610; J1642; J1815; P9047

== ENCOUNTER 2020-02-23 22:40 | Inpatient (IN) | payer MEDICARE, MEDICAID ==
[~2020-02-23] VITALS: Ht 157.5 cm; Wt 64.8 kg
[2020-02-24] VITALS (35 sets, daily range): BP systolic 85–147; BP diastolic 29–91
[2020-02-24 00:56] LABS: Hematocrit 16.4 % (41.0-53.0); Mean Corpuscular Hgb Conc. 30.5 g/dL (32.0-36.0); Mean Corpuscular Volume 91.8 fL (80.0-100.0); Platelet Count (auto) 75 10^3/uL (140-450); Red Blood Cells 1.79 10^6/uL (4.5-5.90)
[2020-02-24 01:09] LABS: BUN/Creatinine Ratio 10.6; Calcium 8.3 mg/dL (8.5-10.1); Magnesium 2.5 mg/dL (1.6-2.6)
[2020-02-24 01:10] LABS: White Blood Cell 438.3 10^3/uL (4.4-10.8)
[2020-02-24 01:13] LABS: Band Neutrophils % (manual) 0; Basophils % (manual) 0 (0.0-2.0); Eosinophils % (manual) 0 (0-7); Metamyelocytes % 0; Myelocytes % 0; Promyelocytes % 0; Reactive Lymphocytes 0
[2020-02-24 01:14] LABS: Potassium 8.8 mmol/L (3.5-5.1)
[2020-02-24 01:18] LABS: INR 1.51 (0.9-1.15); Partial Thromboplastin Time 32.8 sec (23.0-31.2); Total Protein 6.5 g/dL (6.4-8.2)
[2020-02-24] MEDS ORDERED: SODIUM BICARBONATE 8.4 % INJ 50ML VIAL IV ONE ×2 (01:30→16:15)
[2020-02-24] MEDS ORDERED: CALCIUM GLUC 4.65meq/50ml D5AE 50 ML IV ONE ×3 (01:30→16:15)
[2020-02-24] MEDS ORDERED: InsuLIN REG 1unit/0.01ml Soln (100units/ml) IV ONE ×3 (01:30→16:15)
[2020-02-24] MEDS ORDERED: SODIUM ZIRCONIUM CYCL 10 GM PAK PO ONE ×3 (01:30→16:30)
[2020-02-24] MEDS ORDERED: DEXTROSE (50%) 50ML SYRG IV ONE ×3 (01:30→16:15)
[2020-02-24 01:33] LABS: Urine Bacteria FEW /hpf (None Seen); Urine Blood 1+ /uL (Negative); Urine Hyaline Cast MOD /lpf (0 - 2); Urine Mucus FEW (None Seen); Urine Specific Gravity 1.016 (1.001-1.035); Urine Sperm PRESENT /hpf (None Seen); Urine WBC 2 /hpf (0 - 3)
[2020-02-24] MEDS ORDERED: NITROGLYCERIN 0.4 MG SL TAB SL PRN (04:00)
[2020-02-24] MEDS ORDERED: ACETAMINOPHEN 325 MG TAB PO PRN (04:00)
[2020-02-24] MEDS ORDERED: IPRATROPIUM BROM 0.5 MG/2.5ML INH SOL NEB PRN (04:00)
[2020-02-24] MEDS ORDERED: ALBUTEROL SULF 2.5 MG/0.5ML(0.5%) NEB SOLN NEB PRN (04:00)
[2020-02-24] MEDS ORDERED: MORPHINE SULFATE 4 MG/ML SYR/VIAL IV PRN (04:00)
[2020-02-24 04:43] LABS: Lactic Acid w/Reflex 2.5 mmol/L (0.4-2.0)
[2020-02-24] MEDS ORDERED: ENOXAPARIN SOD 100 MG/1 ML SYRINGE SC SCH (05:00)
[2020-02-24] MEDS ORDERED: ALBUTEROL SULF 2.5 MG/0.5ML(0.5%) NEB SOLN NEB ONE ×2 (05:15→16:15)
[2020-02-24 06:16] LABS: Blast Cells 20; Lymphocytes % (manual) 75 (10.0-50.0); Monocytes % (manual) 1 (0-12)
--- NOTE | 2020-02-24 08:00 | NUR ---
Admit to [facility]Z admitted to [facility] via gurney on clod puller, and portable 02. Patient transferred to bed, connected to unit monitoring and oxygen, and weighed by bed scale. Patient oriented to ANGELITA BARFIELD, primary RN, unit, room, bed, and unit policies regarding patient care and visiting hours. All questions and concerns addressed, patient verbalized understanding pt Syriac speaking. 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 pt has a low hgb. has stat orders for HD. hd RN already setting up for HD. pt currently on 4l NC, LS CTA but diminished pt has a productive cough expectorating thick yellow pale phleghm. both iv's patent. pt currently afib with RVR, pt has been evaluated by performance improvement director DR. marshall and he believes pt's fast HR is non cardiac related its, leukemia related. pt's skin is intact.educated pt on poc. pt verbalized understanding of poc.
--- NOTE | 2020-02-24 08:02 | NUR ---
PT ASSESSED FOR PRN MED NEB, PT AWAKE AND ALERT ON 3L NC WITH SPO2 98 WITH NO DISTRESS NOTED. NO INDICATION FOR PRN MED NEB AT THIS TIME. WILL CONTINUE TO MONITOR PT.
--- NOTE | 2020-02-24 08:54 | NUR ---
STARTED ON NEOSYNEPHRINE TO SUPPORT HD FLUID REMOVAL PT'S BP WAS DROPPING TO THE 80'S PRIOR TO STARTING GTT. NORSYNEPHRINE GTT DOUBLE CONCENTRATED.
[2020-02-24] MEDS ORDERED: SODIUM CHL 0.9% 1000 ML BAG XX ONE (09:00)
[2020-02-24] MEDS: PHENYLEPHRINE INJ 40 MG in SODIUM CHL 0.9% 250 ML IV SCH ×2 (10:00→12:30)
[2020-02-24] MEDS: FUROSEMIDE 40 MG/4 ML VIAL IV SCH (10:00)
[2020-02-24] MEDS: CLOPIDOGREL BISULFATE 75 MG TAB PO SCH (10:00)
[2020-02-24] MEDS: CARVEDILOL 3.125 MG TAB PO SCH ×2 (10:00→21:49)
[2020-02-24 10:19] LABS: Red Blood Cells 1.84 10^6/uL (4.5-5.90)
[2020-02-24 10:25] LABS: Hematocrit 16.5 % (41.0-53.0); Mean Corpuscular Hemoglobin 25.9 pg (28.0-32.0); Mean Corpuscular Hgb Conc. 28.7 g/dL (32.0-36.0); Mean Corpuscular Volume 90.2 fL (80.0-100.0); Platelet Count (auto) 70 10^3/uL (140-450); Red Cell Distribution Width 15.7 % (11.8-14.3)
[2020-02-24 10:34] LABS: Calcium 7.5 mg/dL (8.5-10.1)
[2020-02-24 10:37] LABS: BUN/Creatinine Ratio 11.6; Hemoglobin 4.8 g/dL (13.5-17.5); White Blood Cell 457.9 10^3/uL (4.4-10.8)
[2020-02-24 10:40] LABS: Potassium 9.5 mmol/L (3.5-5.1)
[2020-02-24 10:41] LABS: Basophils % (manual) 0 (0.0-2.0); Eosinophils % (manual) 0 (0-7); Metamyelocytes % 0; Myelocytes % 0; Promyelocytes % 0; Reactive Lymphocytes 0
--- NOTE | 2020-02-24 11:13 | NUR ---
CRITICAL LABS I CALLED DR. Tsering ROMERO TO NOTIFIED HIM OF CRITICAL HGB OF 4.8 & WBC OF 457.9 MD STATES " I AM AWARE". I'LL BE THERE IN A LITTLE WHILE".
[2020-02-24 11:16] LABS: Band Neutrophils % (manual) 1; Blast Cells 22; Lymphocytes % (manual) 71 (10.0-50.0); Monocytes % (manual) 3 (0-12)
[2020-02-24] MEDS: ENOXAPARIN SOD 60 MG/0.6 ML SYRINGE SC SCH (11:30)
--- NOTE | 2020-02-24 11:52 | NUR ---
HD FINISHED SBP 140/54 , HR 99. NEOSYNEPHRINE STOPPED AT THIS TIME. I CALLED LAB TO COME FOR A STAT TYPE & CROSS. HGB 4.8. DR Tsering ROMERO AWARE.
[2020-02-24] MEDS ORDERED: PANTOPRAZOLE 40 MG/10 ML VIAL INJ IV ONE (12:00)
[2020-02-24] MEDS: cefTRIAXone 1GM/50ML D5W 50 ML IV SCH (13:02)
--- NOTE | 2020-02-24 13:19 | NUR ---
I SPOKE TO DR. COCHRAN REGARDING PT'S HR. BEEN IN THE 160'S TO THE LOW 40'S BP FLUCTUATING TO THE FROM THE LOW 90'S TO THE 130'S. PRB'S HAS BEEN ORDERED. LAB HAS BEEN NOTIFIED TO COME TO TYPE AND CROSS PT. PT WANTS EVERYTHING DONE. PT IS BRITISH SPEAKING AND IS A+O.
--- NOTE | 2020-02-24 13:41 | NUR ---
DR. UP IN ROUNDING ON PT. I UPDATED HIM ON PT'S CONDITION. HE ASSESSED PT AT BEDSIDE AND HE REVIEWED HIS NOTES. MD WAS SEEN PT HIS ONCOLOGIST. MD SPOKE WITH PT'S DAUGHTER. PT SEEMS TO BE NON COMPLIANT WITH MEDICAL CARE.
--- NOTE | 2020-02-24 13:54 | NUR ---
CALLED LAB AND REQUESTED THEM FOR THE 3RD TIME TO COME TO DRAW THE STAT TYPE AND CROSS. PT'S CONSENT ALREADY SIGNED FOR BLOOD TRANSFUSION.
--- NOTE | 2020-02-24 14:05 | NUR ---
LAB IN TO DRAW TYPE & CROSS.
[2020-02-24] MEDS: PANTOPRAZOLE 40 MG/10 ML VIAL INJ IV SCH (14:08)
[2020-02-24] MEDS ORDERED: predniSONE 5 MG TAB PO ONE (14:30)
[2020-02-24 14:37] LABS: Hematocrit 19.1 % (41.0-53.0); Mean Corpuscular Hemoglobin 27.4 pg (28.0-32.0); Mean Corpuscular Volume 97.6 fL (80.0-100.0); Platelet Count (auto) 63 10^3/uL (140-450); Red Blood Cells 1.95 10^6/uL (4.5-5.90); Red Cell Distribution Width 16.8 % (11.8-14.3)
[2020-02-24 14:43] LABS: Hemoglobin 5.3 g/dL (13.5-17.5); White Blood Cell 381.5 10^3/uL (4.4-10.8)
[2020-02-24 14:44] LABS: Basophils % (manual) 0 (0.0-2.0); Eosinophils % (manual) 0 (0-7); Metamyelocytes % 0; Myelocytes % 0; Promyelocytes % 0; Reactive Lymphocytes 0
[2020-02-24] MEDS ORDERED: MORPHINE SULF INJ 2 MG/ML SYRINGE 1ML IV PRN (14:45)
[2020-02-24 14:46] LABS: Albumin 2.7 g/dL (3.4-5.0); BUN/Creatinine Ratio 10.3; Calcium 7.7 mg/dL (8.5-10.1)
[2020-02-24 14:54] LABS: Bilirubin, Total 2.3 mg/dL (0.2-1.0)
[2020-02-24 14:56] LABS: Band Neutrophils % (manual) 1; Blast Cells 15; Lymphocytes % (manual) 78 (10.0-50.0); Monocytes % (manual) 2 (0-12)
[2020-02-24 15:37] LABS: Potassium 8.2 mmol/L (3.5-5.1)
--- NOTE | 2020-02-24 16:08 | NUR ---
CRITICAL K 8.[address] Tsering ROMERO HE RX HYPERKALEMIA PROTOCOL SEE E-MAR FOR ORDERS.
--- NOTE | 2020-02-24 16:31 | NUR ---
CALLED DR. PA OBRIEN AT THE TIME SHOWN ABOVE AND ORDERS WERE TO DC ALBUTEROL 20MG DUE TO INCREASED HR AND HR FLUCTUATING. ALBUTEROL IS CONTRAINDICATED.
[2020-02-24] MEDS: ASPirin 81 mg TAB PO SCH (17:03)
--- NOTE | 2020-02-24 17:50 | NUR ---
I CALLED DR. CONDE, SPOKE TO ANSWERING SERVICE AJ, I LEFT HIM A MESSAGE TO C/B WITH CRITICAL LAB RESULTS . PT'S COVID TEST COLLECTED AND WILL BE SENT TO MICROBIOLOGY.
--- NOTE | 2020-02-24 17:58 | NUR ---
I NOTIFIED HIM THAT PT'S K ONLY CAME DOWN TO 8.2 S/P HD DR. CONDE CALLED BACK . HE STATES THAT PT'S K IS PROBABLY ELEVATED D/T LEUKEMIA. AWARE AND OKAY WITH TREATMENT ORDERED BY DR. German ROMERO. HE WOULD LIKE POTASSIUM NOT TO BE RECHECK UNTIL TOMORROW IN AM LABS AND . HE WANTS STANDING ORDERS FOR HYPERKALEMIA PROTOCOL WHEN K IS HIGH IN AM TO UTILIZE SAME ORDERS TODAY. INSULIN 10 UNITS IV CALCIUM GLUCONATE 1 GRAM DEXTROSE 50% 1 AMP SODIUM BICARB 50 MEQ 1 AMP. PT IS ALREADY SCHEDULE FOR HD . IN AM.
--- NOTE | 2020-02-24 18:54 | NUR ---
Respiratory note: ASSESSED PT FOR PRN MED NEB TX. PT IS CURRENTLY ON 4 L/M NC: HR 98, RR 20, SPO2 100%. PT SHOWS NO S/S OF SOB OR RESPIRATORY DISTRESS. MED NEB TX NOT INDICATED AT THIS TIME. WILL CONTINUE TO MONITOR.
--- NOTE | 2020-02-24 19:00 | NUR ---
Opening Shift Note Assumed care of patient, awake and alert but very fatigued and has difficulty keeping his eyes open. No S/S of distress/SOB or pain. Instructed on POC and to call for assist PRN, will continue to monitor for changes Q1hr and PRN.
[2020-02-24] MEDS: IBRUTINIB 280 MG PO SCH (19:21)
--- NOTE | 2020-02-24 20:35 | NUR ---
Blood transfusion: Second unit of blood started. RN will continue to monitor and assess patient.
[2020-02-24] MEDS: hydroxyUREA 500 MG CAP PO SCH (21:52)
[2020-02-24] MEDS: ATORVASTATIN 20 MG TAB PO SCH (21:57)
--- NOTE | 2020-02-24 22:02 | NUR ---
Increased weakness: Patient is noted to be very weak and fatigued. Patient is alert to name and looks at nurse when called but quickly goes back to sleep. Patient mumbles to nurse and answers yes and no questions only at this time. Patient noted to have difficulty keeping his eyes open. RN current vitals are stable. BP 110/38, HR 96, Pulse ox 100%. RN will continue to monitor and assess patient.
[2020-02-24 22:47] LABS: Hematocrit 23.3 % (41.0-53.0); Hemoglobin 7.3 g/dL (13.5-17.5)
[2020-02-24] MEDS ORDERED: PRED20TA2 PO (22:47)
[2020-02-25] VITALS (22 sets, daily range): BP systolic 80–140; BP diastolic 30–96
--- NOTE | 2020-02-25 01:00 | NUR ---
COVID RESULTS: RN called lab and spoke with TECH regarding patients COVID results. Patient has come back positive for COVID-19.
[2020-02-25 03:07] LABS: Red Cell Distribution Width 15.5 % (11.8-14.3)
[2020-02-25 03:10] LABS: Hematocrit 21.9 % (41.0-53.0); Hemoglobin 7.4 g/dL (13.5-17.5); Mean Corpuscular Hemoglobin 29.8 pg (28.0-32.0); Mean Corpuscular Hgb Conc. 33.6 g/dL (32.0-36.0); Mean Corpuscular Volume 88.7 fL (80.0-100.0); Platelet Count (auto) 49 10^3/uL (140-450); Red Blood Cells 2.47 10^6/uL (4.5-5.90)
[2020-02-25 03:21] LABS: Band Neutrophils % (manual) 0; Basophils % (manual) 0 (0.0-2.0); Eosinophils % (manual) 0 (0-7); Metamyelocytes % 0; Myelocytes % 0; Promyelocytes % 0; White Blood Cell 345.9 10^3/uL (4.4-10.8)
[2020-02-25 03:23] LABS: Albumin 2.6 g/dL (3.4-5.0); Calcium 7.3 mg/dL (8.5-10.1)
[2020-02-25 03:31] LABS: BUN/Creatinine Ratio 10.1; Bilirubin, Total 1.5 mg/dL (0.2-1.0); Total Protein 5.6 g/dL (6.4-8.2)
[2020-02-25 03:32] LABS: Potassium 7.1 mmol/L (3.5-5.1)
[2020-02-25] MEDS: PHENYLEPHRINE INJ 40 MG in SODIUM CHL 0.9% 250 ML IV SCH ×2 (03:43→20:23)
[2020-02-25] MEDS ORDERED: SODIUM BICARBONATE 8.4% INJ 50ML SYRINGE IV ONE (03:45)
[2020-02-25] MEDS ORDERED: CALCIUM GLUC 4.65meq/50ml D5AE 50 ML IV ONE ×2 (03:45→03:52)
[2020-02-25] MEDS ORDERED: DEXTROSE (50%) 50ML SYRG IV ONE (03:45)
[2020-02-25] MEDS ORDERED: SODIUM ZIRCONIUM CYCL 10 GM PAK PO ONE (03:45)
[2020-02-25] MEDS ORDERED: InsuLIN REG 1unit/0.01ml Soln (100units/ml) IV ONE (03:45)
[2020-02-25] MEDS ORDERED: SODIUM BICARBONATE 8.4 % INJ 50ML VIAL IV ONE (03:53)
--- NOTE | 2020-02-25 04:21 | NUR ---
Hyperkalemic protocol: Patient's blood results came back with a potassium of 7.1. RN initiated Hyperkalemic protocol per MD orders. Patients blood sugar was checked and noted to be 108. Patient was given Regular Insulin IV 10 units, 1 AMP Sodium Bicarb, 1 AMP D50, 1 Gram Calcium Gluconate, and 10GR of Lokelma PO. Patient tolerated treatment well. RN will continue to closely assess and monitor patient.
[2020-02-25 05:40] LABS: Blast Cells 14; Lymphocytes % (manual) 77 (10.0-50.0); Monocytes % (manual) 4 (0-12); Reactive Lymphocytes 3
--- NOTE | 2020-02-25 05:48 | NUR ---
BS recheck: RN reassessed patients blood sugar d/t administration of dextrose and IV insulin. Patient was noted to have a blood sugar of 125. RN will continue to monitor and assess patient.
[2020-02-25] MEDS ORDERED: SODIUM CHL 0.9% 1000 ML BAG XX ONE (07:00)
--- NOTE | 2020-02-25 07:06 | NUR ---
Respiratory note: PRN MED NEB TX NOT INDICATED AT THIS TIME. HR 120, RR 19, SPO2 989%, BS CLEAR. NO SIGNS OR SYMPTOMS OF RESPIRATORY DISTRESS NOTED AT THIS TIME.
[2020-02-25 07:54] LABS: Hematocrit 21.8 % (41.0-53.0); Hemoglobin 7.2 g/dL (13.5-17.5); Mean Corpuscular Hemoglobin 29.1 pg (28.0-32.0); Mean Corpuscular Hgb Conc. 33.1 g/dL (32.0-36.0); Mean Corpuscular Volume 88.1 fL (80.0-100.0); Platelet Count (auto) 33 10^3/uL (140-450); Red Blood Cells 2.48 10^6/uL (4.5-5.90); Red Cell Distribution Width 15.7 % (11.8-14.3)
[2020-02-25 08:02] LABS: White Blood Cell 357.6 10^3/uL (4.4-10.8)
[2020-02-25 08:04] LABS: Band Neutrophils % (manual) 0; Basophils % (manual) 0 (0.0-2.0); Eosinophils % (manual) 0 (0-7); Metamyelocytes % 0; Myelocytes % 0; Promyelocytes % 0; Reactive Lymphocytes 0
[2020-02-25 09:01] LABS: Blast Cells 18; Lymphocytes % (manual) 73 (10.0-50.0); Monocytes % (manual) 4 (0-12)
[2020-02-25] MEDS: ASPirin 81 mg TAB PO SCH (10:00)
[2020-02-25] MEDS: ENOXAPARIN SOD 60 MG/0.6 ML SYRINGE SC SCH (10:00)
[2020-02-25] MEDS: hydroxyUREA 500 MG CAP PO SCH ×2 (10:00→20:57)
[2020-02-25] MEDS: CLOPIDOGREL BISULFATE 75 MG TAB PO SCH ×2 (10:00→16:19)
[2020-02-25] MEDS: CARVEDILOL 3.125 MG TAB PO SCH ×2 (10:00→20:57)
[2020-02-25] MEDS ORDERED: IBRUTINIB 280 MG PO SCH (10:00)
[2020-02-25] MEDS: FUROSEMIDE 40 MG/4 ML VIAL IV SCH (10:00)
[2020-02-25 10:21] LABS: Hepatitis B Surface Antibody Positive
[2020-02-25 10:58] LABS: Hepatitis A Total Antibody Positive
--- NOTE | 2020-02-25 11:43 | NUR ---
DIALYSIS NURSE AT BEDSIDE. NURSE UPDATED ON PATIENTS STATUS. ORDERS/ LABS REVIEWED. PATIENT HR REMAINING AFIB 154 BP 120/49 AT THIS TIME.
--- NOTE | 2020-02-25 13:03 | NUR ---
ASSISTANT CHIEF NURSING OFFICER DR. UP UPDATED ON PATIENT STATUS. AWARE OF WBC AND PLT. MD STATED HOLD LOVENOX WHEN PLT COUNT LESS THAN 50.
[2020-02-25 13:36] LABS: Hepatitis B Core Total AB Negative; Hepatitis B Surface Antigen Negative (Negative); Hepatitis C Antibody Negative (Negative)
--- NOTE | 2020-02-25 13:38 | NUR ---
Family updated on pt status Family of INEZ SEXTON updated on patient's status and condition. All questions and concerns addressed. Fátima, daughter verbalized understanding. Daughter aware of positive covid results with precautions needed to take.
--- NOTE | 2020-02-25 14:50 | NUR ---
DIALYSIS COMPLETE 1 LITER REMOVED. NEOSYNEPHRINE OFF BP. 126/63 HR AFIB FLUCTUATING 90-160'S.
[2020-02-25] MEDS ORDERED: DexAMETHasone 4 MG TAB PO ONE (15:00)
[2020-02-25] MEDS: cefTRIAXone 1GM/50ML D5W 50 ML IV SCH (15:41)
--- NOTE | 2020-02-25 16:09 | NUR ---
ROUNDS DR. HARVEY AT BEDSIDE. TRANSLATION PROVIDED AT BEDSIDE. MD AWARE OF PLT COUNT. MD STATED OK TO HOLD ASA AND LOVENOX AND PLAVIX TO BE GIVEN. MD AWARE OF HR FLUCTUATING AFIB LOW 48-120'S POST DIALYSIS. OK TO HOLD COREG AT THIS TIME. SEE MD ORDERS.
[2020-02-25] MEDS: IBRUTINIB 280 MG PO SCH (16:19)
--- NOTE | 2020-02-25 17:44 | NUR ---
PARTS WASHER DR. LOPEZ UPDATED ON PATIENTS STATUS. SEE MD ORDERS. PER MD, PLAVIX TO BE HELD.
--- NOTE | 2020-02-25 17:52 | NUR ---
PATIENT SITTING AT EDGE OF BED, DANGLING FEET. AWAITING TRAY.
--- NOTE | 2020-02-25 17:57 | NUR ---
Family updated on pt status Family of INEZ SEXTON updated on patient's status and condition. All questions and concerns addressed. Fátima verbalized understanding.
--- NOTE | 2020-02-25 18:50 | NUR ---
Respiratory note: ASSESSED PT FOR PRN MED NEB AT THIS TIME, PT SLEEPING AT THIS TIME, NO RESP DISTRESS NOTED, NO TX INDICATED. PULSE OX 94% ON 2LNC, HR 79, RR 23. WILL CONTINUE TO MONITOR
--- NOTE | 2020-02-25 19:00 | NUR ---
Opening Shift Note Assumed care of patient, awake and alert. No S/S of distress/SOB or pain. Instructed on POC and to call for assist PRN, will continue to monitor for changes Q1hr and PRN.
[2020-02-25] MEDS: ATORVASTATIN 20 MG TAB PO SCH (21:14)
--- NOTE | 2020-02-25 23:50 | NUR ---
Change is respirations: Patient was noted to have a change in respiratory status and appearing to have difficulty breathing with use of accessory muscles. Patient was breathing through his mouth and struggling to grasp air. Patient still noted to be saturating at 96% but have moderate difficulty. When RN asked patient if he was having difficulty breathing, patient nodded his head "No" but still appearing to be very anxious. Patient states he does not need anything right now and feels okay. RN will continue to monitor and assess patient. Addendum: 02/26/20 at 0003 by RADHA BAEZ RN RN Wrong patient.
[2020-02-26] VITALS: BP 117/48
[2020-02-26 04:00] VITALS: BP 119/54
[2020-02-26 04:29] LABS: BUN/Creatinine Ratio 9.6
[2020-02-26 04:42] LABS: Calcium 5.1 mg/dL (8.5-10.1); Potassium 7.7 mmol/L (3.5-5.1)
[2020-02-26] MEDS ORDERED: SODIUM ZIRCONIUM CYCL 10 GM PAK PO ONE (04:45)
[2020-02-26] MEDS ORDERED: DEXTROSE (50%) 50ML SYRG IV ONE (04:45)
[2020-02-26] MEDS ORDERED: CALCIUM GLUC 4.65meq/50ml D5AE 50 ML IV ONE (04:45)
[2020-02-26] MEDS ORDERED: InsuLIN REG 1unit/0.01ml Soln (100units/ml) IV ONE (04:45)
[2020-02-26] MEDS ORDERED: SODIUM BICARBONATE 8.4% INJ 50ML SYRINGE IV ONE (04:45)
--- NOTE | 2020-02-26 05:20 | NUR ---
Hyperkalemic protocol: Patient's blood results came back with a potassium of 7.7. RN initiated Hyperkalemic protocol per MD orders. Patients blood sugar was checked and noted to be 158. Patient was given Regular Insulin IV 10 units, 1 AMP Sodium Bicarb, 1 AMP D50, 1 Gram Calcium Gluconate, and 10GR of Lokelma PO. Patient tolerated treatment well. RN will continue to closely assess and monitor patient.
--- NOTE | 2020-02-26 06:33 | NUR ---
BS recheck: RN reassessed patients blood sugar d/t administration of dextrose and IV insulin. Patient was noted to have a blood sugar of 188. RN will continue to monitor and assess patient.
--- NOTE | 2020-02-26 06:38 | NUR ---
RT NOTE HR 74, RR 18, SPO2 96% ON 1 L NC, BS CLEAR. PRN MED NEB TX NOT INDICATED. NO SIGNS OR SYMPTOMS OF RESPIRATORY DISTRESS NOTED AT THIS TIME.
--- NOTE | 2020-02-26 07:48 | NUR ---
PAGED DR LOPEZ REGARDING MORNING POTASSIUM PROTOCOL FOLLOWED BY ELECTRICAL AND INSTRUMENT MECHANIC RN AND NOTED, CONTACT DR LOPEZ AFTER 0700 TO NOTIFY. MESSAGE LEFT WITH CARINE AT ANSWERING SERVICE, AWAITING RESPONSE.
[2020-02-26 08:00] VITALS: BP 129/55
[2020-02-26] MEDS: ASPirin 81 mg TAB PO SCH (10:00)
[2020-02-26] MEDS: CARVEDILOL 3.125 MG TAB PO SCH ×2 (10:00→22:00)
[2020-02-26] MEDS: hydroxyUREA 500 MG CAP PO SCH ×2 (10:00→21:12)
[2020-02-26] MEDS: FUROSEMIDE 40 MG/4 ML VIAL IV SCH (10:00)
--- NOTE | 2020-02-26 10:58 | NUR ---
DIALYSIS NURSE AT BEDSIDE
[2020-02-26 12:00] VITALS: BP 119/59
[2020-02-26] MEDS: PHENYLEPHRINE INJ 40 MG in SODIUM CHL 0.9% 250 ML IV SCH (13:03)
--- NOTE | 2020-02-26 14:29 | NUR ---
DIALYSIS COMPLETION A TOTAL OF 800 MLS REMOVED, PER GRAVITY PROSPECTOR. PATIENT BLOOD PRESSURE DECREASED SBP 70'S. PHENYLEPHRINE RESTARTED ORDERED BY MD. WILL CONTINUE TO MONITOR BP.
[2020-02-26] MEDS: CLOPIDOGREL BISULFATE 75 MG TAB PO SCH (15:05)
[2020-02-26] MEDS: ENOXAPARIN SOD 60 MG/0.6 ML SYRINGE SC SCH (15:06)
[2020-02-26] MEDS: PANTOPRAZOLE 40 MG/10 ML VIAL INJ IV SCH (15:06)
[2020-02-26] MEDS: IBRUTINIB 280 MG PO SCH (15:06)
[2020-02-26] MEDS: DexAMETHasone 4 MG TAB PO SCH (15:07)
[2020-02-26] MEDS: cefTRIAXone 1GM/50ML D5W 50 ML IV SCH (15:14)
[2020-02-26 15:56] VITALS: BP 115/44
--- NOTE | 2020-02-26 16:13 | NUR ---
Family updated on pt status Family of DEL LEEMALENAINEZ updated on patient's status and condition after password verification. All questions and concerns addressed. Patient's daughter Fátima verbalized understanding. Phone call transferred to patient room.
[2020-02-26 20:00] VITALS: BP 119/59
--- NOTE | 2020-02-26 20:10 | NUR ---
Opening Shift Note: A&Ox4, welsh speaking only. Neuro: moves all extremities with mild weakness; currently BR. Cardio: Afib with erratic changes in HR from 40s to 170s; SBP 110s to 120s; pulses palpable. Respiratory: 1 LO2 via NC; anterior lung sounds diminished; spontaneous productive cough clear thin with SOB on exertion. COVID positive: all precautions in place. GI: BS active, last BM 02/26/20 with bedpan. : ESRD with dialysis normally on MWF with [facility]; currently receiving daily dialysis related to hyperkalemia (last value 7.2). Per report, 02/24/20 2L out; 02/25/20 1L out; 02/25 800 ml out; anuria at baseline; access is a RUE fistula; bandages are still in place related to patient having bleeding with removal. Skin: intact with hyperpigmentation to BLE. IVs: left finger IV 22 g was partly pulled out upon assessment; IV discontinued; IV 20 g in left AC IID inserted on 02/24/20. Communication order in place to follow hyperkalemia protocol if AM labs present with a potassium greater than 5.8. Hx of receiving 2 units of PRBCs for low hgb on 02/24/20. Physicians on case: Prabha Tomlinson (GI)/ Elizabeth (Hem/Onc)/ Doroteo (Nephro)/ González (Cardio)/ Johnny (attending). Will continue to round/reposition prn.
[2020-02-26] MEDS: ATORVASTATIN 20 MG TAB PO SCH (22:00)
[2020-02-27] VITALS (9 sets, daily range): BP systolic 87–132; BP diastolic 33–54
--- NOTE | 2020-02-27 03:16 | NUR ---
Patient bathe/linen change Patient given complete CHG bath. Skin integrity assessed for any changes. Linens and gown changed. Patient repositioned for comfort.
--- NOTE | 2020-02-27 06:24 | NUR ---
Respiratory note: ASSESSED PT FOR PRN TX PT WAS ASLEEP, NO RESP DISTRESS NOTED. HR 78, RR 16, SPO2 98% ON 2L N/C. BS ARE CLEAR, NO INDICATION FOR TX AT THIS TIME. PT KNOWS TO HAVE ME PAGED IF TX IS NEEDED.
--- NOTE | 2020-02-27 06:45 | NUR ---
Labs sent to lab via bullet system. Lab notified.
--- NOTE | 2020-02-27 06:50 | NUR ---
Hgb 6.9 per laboratory
[2020-02-27 06:59] LABS: Red Blood Cells 2.45 10^6/uL (4.5-5.90); Red Cell Distribution Width 15.6 % (11.8-14.3)
[2020-02-27] MEDS ORDERED: SODIUM CHL 0.9% 1000 ML BAG XX ONE (07:00)
[2020-02-27 07:01] LABS: Hematocrit 21.9 % (41.0-53.0); Mean Corpuscular Hemoglobin 28.4 pg (28.0-32.0); Mean Corpuscular Hgb Conc. 31.7 g/dL (32.0-36.0); Mean Corpuscular Volume 89.5 fL (80.0-100.0); Platelet Count (auto) 48 10^3/uL (140-450)
[2020-02-27 07:07] LABS: Hemoglobin 6.9 g/dL (13.5-17.5); White Blood Cell 333.4 10^3/uL (4.4-10.8)
[2020-02-27 07:08] LABS: Band Neutrophils % (manual) 0; Basophils % (manual) 0 (0.0-2.0); Eosinophils % (manual) 0 (0-7); Metamyelocytes % 0; Myelocytes % 0; Promyelocytes % 0; Reactive Lymphocytes 0
[2020-02-27 07:13] LABS: Albumin 2.6 g/dL (3.4-5.0); BUN/Creatinine Ratio 14.3; Calcium 6.5 mg/dL (8.5-10.1)
[2020-02-27 07:15] LABS: Bilirubin, Total 0.9 mg/dL (0.2-1.0); Total Protein 5.7 g/dL (6.4-8.2)
[2020-02-27 07:32] LABS: Potassium 6.8 mmol/L (3.5-5.1)
[2020-02-27 07:58] LABS: Blast Cells 20; Lymphocytes % (manual) 77 (10.0-50.0); Monocytes % (manual) 1 (0-12)
--- NOTE | 2020-02-27 08:04 | NUR ---
called for orders regarding morning labs. Signed: 02/27/20 at 0804 by Mayito Cortés RN
--- NOTE | 2020-02-27 09:46 | NUR ---
arc furnace operator with [facility] in unit. setting up for room 265.
[2020-02-27] MEDS: DexAMETHasone 4 MG TAB PO SCH (10:00)
[2020-02-27] MEDS: cefTRIAXone 1GM/50ML D5W 50 ML IV SCH (10:00)
[2020-02-27] MEDS: FUROSEMIDE 40 MG/4 ML VIAL IV SCH (10:00)
[2020-02-27] MEDS: ENOXAPARIN SOD 60 MG/0.6 ML SYRINGE SC SCH (10:00)
[2020-02-27] MEDS: CARVEDILOL 3.125 MG TAB PO SCH ×2 (10:00→20:56)
[2020-02-27] MEDS: CLOPIDOGREL BISULFATE 75 MG TAB PO SCH (10:00)
[2020-02-27] MEDS: ASPirin 81 mg TAB PO SCH (10:00)
[2020-02-27] MEDS: IBRUTINIB 280 MG PO SCH (10:00)
[2020-02-27] MEDS: PANTOPRAZOLE 40 MG/10 ML VIAL INJ IV SCH (10:00)
--- NOTE | 2020-02-27 14:17 | NUR ---
SPOKE WITH MD HARRIS TO HOLD ANTIPLATELETS AND ANTICOUG DUE TO LOW PLATELETS AND HGB.
--- NOTE | 2020-02-27 14:36 | NUR ---
Nutrition Assessment Notes Please refer to link for full assessment notes. Est Energy needs: 8446-5808 kcals (30-35 kcal/kgBW) d/t pt with ESRD with HD Est Protein needs: 68-74 gms/day (1.1-1.2 gm/kgBW) Will continue to monitor and reassess prn. Addendum: 02/27/20 at [address] Amended: Links added. Addendum: 02/27/20 at [address] Additional Recommendation: Suggest a Renal Standard diet
[2020-02-27 15:17] LABS: Anion Gap 5 (5-15); BUN/Creatinine Ratio 13.2; Blood Urea Nitrogen 29 mg/dL (7-18); Calcium 6.6 mg/dL (8.5-10.1); Carbon Dioxide 30 mmol/L (21-32); Chloride 99 mmol/L (98-107); GFR African American 37 mL/min; GFR Non-African American 30 mL/min; Glucose 128 mg/dL (74-106); Sodium 134 mmol/L (136-145)
--- NOTE | 2020-02-27 15:30 | NUR ---
spoke to daughter gave update, no further questions from daughter.
[2020-02-27 15:44] LABS: Potassium 7.9 mmol/L (3.5-5.1)
--- NOTE | 2020-02-27 15:52 | NUR ---
spoke with md informed of critical k value. orders to be placed by md and RN to call solar sales assessor on the case.
[2020-02-27] MEDS ORDERED: SODIUM BICARBONATE 8.4% INJ 50ML SYRINGE IV ONE (16:00)
[2020-02-27] MEDS ORDERED: InsuLIN REG 1unit/0.01ml Soln (100units/ml) IV ONE (16:00)
[2020-02-27] MEDS ORDERED: DEXTROSE (50%) 50ML SYRG IV ONE (16:00)
[2020-02-27] MEDS ORDERED: ALBUTEROL SULF 2.5 MG/0.5ML(0.5%) NEB SOLN NEB ONE (16:00)
[2020-02-27 16:20] LABS: INR 1.1 (0.9-1.15)
--- NOTE | 2020-02-27 16:46 | NUR ---
pt receiving breathing treatment covid positive, will wait one hour before entering room due to aerosolized treatment.
--- NOTE | 2020-02-27 18:33 | NUR ---
paged md marshall regarding elevated HR, pt ranges from 120-150s afib.
--- NOTE | 2020-02-27 20:00 | NUR ---
OPEN NOTES RECEIVED PATIENT ON ISOLATION FOR POSITIVE COVID TEST. TONGAN SPEAKING ON NC 2L/MIN, SATURATING 95-100% PATIENT IS ON AFIB HR 120-150/MIN, BP STABLE. WILL DO 12 LEAD EKG FULL ASSESSMENT DONE -REFER INTERVENTIONS
--- NOTE | 2020-02-27 20:33 | NUR ---
12 LEAD EKG DONE ATRIAL FIBRILLATION HR 120-140/MIN REVIEWED EMAR PATIENT HAS COREG AT 2200HRS - WILL GIVE EARLY
[2020-02-27] MEDS: ATORVASTATIN 20 MG TAB PO SCH (20:55)
--- NOTE | 2020-02-27 20:55 | NUR ---
PACKED CELL TRANSFUSION STARTED
[2020-02-27] MEDS: PHENYLEPHRINE INJ 40 MG in SODIUM CHL 0.9% 250 ML IV SCH (22:23)
--- NOTE | 2020-02-27 22:30 | NUR ---
TRIED INSERTING ANOTHER IV SEVERAL TIMES BUT FAILED
--- NOTE | 2020-02-27 22:32 | NUR ---
RT NOTE PT WAS SEEN BY RT FOR PRN HHN TX. PT IS AWAKE AND ALERT WITHOUT SOB OR DISTRESS. PT IS WORRIED ABOUT IV SITE WITH BLOOD, ОЛЬГА RUBIO NOTIFIED. NO SOB OR DISTRESS NOTED. NO PRN TX INDICATED Addendum: 02/27/20 at 2307 by Bozena Ugalde RT Amended: Links added.
[2020-02-27] MEDS: SODIUM ZIRCONIUM CYCL 10 GM PAK PO SCH (22:58)
[2020-02-28] VITALS (10 sets, daily range): BP systolic 84–146; BP diastolic 35–77
--- NOTE | 2020-02-28 00:48 | NUR ---
PC TRANSFUSION DONE
--- NOTE | 2020-02-28 02:00 | NUR ---
HEMODYNAMICS PATIENT'S HR GOES DOWN LOW 30'S/MIN TRANSIENT THEN WILL GO BACK 50-70/MIN SA BP 85-98 MMHG SYSTOLIC WILL CONTINUE TO MONITOR
[2020-02-28 04:06] LABS: Hematocrit 23.2 % (41.0-53.0); Hemoglobin 7.6 g/dL (13.5-17.5); Mean Corpuscular Hgb Conc. 32.7 g/dL (32.0-36.0); Mean Corpuscular Volume 91.7 fL (80.0-100.0); Platelet Count (auto) 32 10^3/uL (140-450); Red Blood Cells 2.53 10^6/uL (4.5-5.90); Red Cell Distribution Width 15.4 % (11.8-14.3)
[2020-02-28 04:10] LABS: White Blood Cell 250.9 10^3/uL (4.4-10.8)
[2020-02-28 04:11] LABS: Band Neutrophils % (manual) 0; Basophils % (manual) 0 (0.0-2.0); Eosinophils % (manual) 0 (0-7); Metamyelocytes % 0; Myelocytes % 0; Promyelocytes % 0; Reactive Lymphocytes 0
[2020-02-28 04:13] LABS: BUN/Creatinine Ratio 12.9; Calcium 6.2 mg/dL (8.5-10.1)
[2020-02-28 04:35] LABS: Potassium 7.1 mmol/L (3.5-5.1)
[2020-02-28] MEDS ORDERED: DEXTROSE (50%) 50ML SYRG IV ONE (05:00)
[2020-02-28] MEDS ORDERED: InsuLIN REG 1unit/0.01ml Soln (100units/ml) IV ONE (05:00)
--- NOTE | 2020-02-28 05:00 | NUR ---
HYGIENE CLEANED BACK SIDE LINENS CHANGED
--- NOTE | 2020-02-28 05:05 | NUR ---
POTASSIUM REMAINED ELEVATED WILL GIVE DEXTROSE,INSULIN, LOKELMA AND CALCIUM GLUCONATE PER DR. LOPEZ'S ORDER
[2020-02-28] MEDS: SODIUM ZIRCONIUM CYCL 10 GM PAK PO SCH ×3 (05:34→21:06)
[2020-02-28] MEDS ORDERED: CALCIUM GLUC 4.65meq/50ml D5AE 50 ML IV ONE (06:15)
[2020-02-28 06:20] LABS: Blast Cells 8; Lymphocytes % (manual) 89 (10.0-50.0); Monocytes % (manual) 2 (0-12)
--- NOTE | 2020-02-28 06:20 | NUR ---
ADJUNCT TEACHER AT BEDSIDE
[2020-02-28] MEDS ORDERED: SODIUM CHL 0.9% 1000 ML BAG XX ONE (07:00)
--- NOTE | 2020-02-28 07:00 | NUR ---
HR PATIENT'S HR GOES 38/MIN TRANSIENT THEN GOES BACK UP TO 40-50/MIN BP STABLE 101/53 MMHG WILL CONTINUE TO MONITOR
--- NOTE | 2020-02-28 07:45 | NUR ---
OPENING SHIFT NOTE Received report from NOC RN, Zeinab. Assumed care of patient. Patient on Novel Respiratory Isolation for COVID-19. Received patient lying in bed connected to bedside monitor. Dialysis treatment in progress with food and beverage analyst at bedside. Patient is Czech speaking, A&Ox4, denies pain and no s/s of distress noted. Patient with PIV to left AC #20 that is patent and flushes. Bed is in lowest position, rails x3 up and call light within reach. Updated on plan of care. Will continue to monitor q1hr/PRN.
--- NOTE | 2020-02-28 07:47 | NUR ---
PAGED DR. COCHRAN FOR HR LOW
--- NOTE | 2020-02-28 09:06 | NUR ---
MD Dr Johnson to see patient. Orders received to continue Hydroxurea despite low platelets and neutrophils. Pharmacy made aware.
[2020-02-28] MEDS ORDERED: hydroxyUREA 500 MG CAP PO SCH ×2 (09:15)
[2020-02-28] MEDS: ENOXAPARIN SOD 60 MG/0.6 ML SYRINGE SC SCH (10:00)
[2020-02-28] MEDS: CLOPIDOGREL BISULFATE 75 MG TAB PO SCH (10:00)
[2020-02-28] MEDS: ASPirin 81 mg TAB PO SCH (10:00)
--- NOTE | 2020-02-28 11:00 | NUR ---
DIALYSIS Treatment complete. See chart flowsheet. 500ml removed. Dressing to come off fistula in 4hrs.
[2020-02-28] MEDS: FUROSEMIDE 40 MG/4 ML VIAL IV SCH (12:06)
[2020-02-28] MEDS: CARVEDILOL 3.125 MG TAB PO SCH ×2 (12:06→21:07)
[2020-02-28] MEDS: hydroxyUREA 500 MG CAP PO SCH ×2 (12:06→21:05)
[2020-02-28] MEDS: PANTOPRAZOLE 40 MG/10 ML VIAL INJ IV SCH (12:06)
[2020-02-28] MEDS: IBRUTINIB 280 MG PO SCH (12:06)
[2020-02-28] MEDS: cefTRIAXone 1GM/50ML D5W 50 ML IV SCH (12:06)
[2020-02-28] MEDS: DexAMETHasone 4 MG TAB PO SCH (12:07)
--- NOTE | 2020-02-28 12:30 | NUR ---
MD Dr Turner at bedside to see patient.
[2020-02-28 13:41] LABS: Hemoglobin 8.3 g/dL (13.5-17.5); Mean Corpuscular Hemoglobin 30.6 pg (28.0-32.0); Red Blood Cells 2.72 10^6/uL (4.5-5.90)
[2020-02-28 13:46] LABS: Hematocrit 24.9 % (41.0-53.0); Mean Corpuscular Hgb Conc. 33.4 g/dL (32.0-36.0); Mean Corpuscular Volume 91.6 fL (80.0-100.0); Platelet Count (auto) 33 10^3/uL (140-450)
[2020-02-28 13:49] LABS: White Blood Cell 205.4 10^3/uL (4.4-10.8)
[2020-02-28 13:50] LABS: Band Neutrophils % (manual) 0; Basophils % (manual) 0 (0.0-2.0); Eosinophils % (manual) 0 (0-7); Metamyelocytes % 0; Myelocytes % 0; Promyelocytes % 0; Reactive Lymphocytes 0
[2020-02-28 13:59] LABS: BUN/Creatinine Ratio 12.7; Calcium 6.2 mg/dL (8.5-10.1); Potassium 5.5 mmol/L (3.5-5.1)
[2020-02-28 14:03] LABS: Lymphocytes % (manual) 86 (10.0-50.0); Monocytes % (manual) 1 (0-12)
[2020-02-28 14:04] LABS: Blast Cells 11
--- NOTE | 2020-02-28 14:27 | NUR ---
assessment Patient is a 89 year old male who is Kazakh speaking. Per patients daughter Fátima prior to admission patient lived home with family and functioned independently. Patient has a wheelchair and cane for home use. Patients PCP is Dr Kaiser. Patient is on service with Vivian El at 730am. Per Fátima patient will return home with her and family on discharge. Fátima informed patient will not go to SNF, Fátima informed me patient will only go home on discharge. I informed Fátima I will continue to monitor and follow up as appropriate. Fátima verbalized understanding and agreed to discharge plan home. Addendum: 02/28/20 at 1537 by Bev MAS Amended: Links added.
[2020-02-28] MEDS: PHENYLEPHRINE INJ 40 MG in SODIUM CHL 0.9% 250 ML IV SCH (14:47)
--- NOTE | 2020-02-28 17:30 | NUR ---
IV ACCESS Left AC PIV noted to be removed by CCT. Pressure dressing applied. Catheter noted intact.
--- NOTE | 2020-02-28 18:42 | NUR ---
IV FINANCE BUSINESS MANAGER unable to get IV access x2. Patient refusing to allow RN to attempt any more sticks at this time.
--- NOTE | 2020-02-28 19:30 | NUR ---
END OF SHIFT NOTE Report given to NOC RNMinnie. Endorsed care of patient. Patient still needing IV access.
--- NOTE | 2020-02-28 20:00 | NUR ---
OPENING NOTE REPORT RECEIVED FROM JIMI RN. THIS IS A POSITIVE COVID PATIENT ON NOVEL RESPIRATORY ISOLATION. PATIENT IS A/OX4 CONNECTED TO CONTINUOUS BEDSIDE MONITORS. PATIENT IS WOLOF SPEAKING AND ABLE TO VERBALIZE ALL NEEDS. PATIENT IS ON 2L NASAL CANNULA, SPO2 100%. PHYSICAL ASSESSMENT DONE-SEE INTERVENTIONS. 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 POC DISCUSSED, CALL LIGHT WITHIN REACH.
--- NOTE | 2020-02-28 20:40 | NUR ---
IV insertion IV access obtained, via clean sterile technique by inserting 22 gauge catheter at LEFT HAND after 2 attempt(s). IV secured properly. No trauma to site. Patient tolerated well.
[2020-02-28] MEDS: ATORVASTATIN 20 MG TAB PO SCH (21:06)
[2020-02-29] VITALS: BP 128/59
[2020-02-29 04:00] VITALS: BP 113/51
[2020-02-29 04:21] LABS: Hematocrit 22.4 % (41.0-53.0); Hemoglobin 7.6 g/dL (13.5-17.5); Platelet Count (auto) 23 10^3/uL (140-450); Red Cell Distribution Width 15.2 % (11.8-14.3)
[2020-02-29 04:24] LABS: Mean Corpuscular Hemoglobin 31.5 pg (28.0-32.0); Mean Corpuscular Hgb Conc. 34.2 g/dL (32.0-36.0); Mean Corpuscular Volume 92.3 fL (80.0-100.0); Red Blood Cells 2.42 10^6/uL (4.5-5.90)
[2020-02-29 04:30] LABS: White Blood Cell 168.4 10^3/uL (4.4-10.8)
[2020-02-29 04:31] LABS: Band Neutrophils % (manual) 0; Basophils % (manual) 0 (0.0-2.0); Eosinophils % (manual) 0 (0-7); Metamyelocytes % 0; Myelocytes % 0; Promyelocytes % 0; Reactive Lymphocytes 0
[2020-02-29 04:40] LABS: Anion Gap 8 (5-15); BUN/Creatinine Ratio 17.2; Blood Urea Nitrogen 49 mg/dL (7-18); Carbon Dioxide 25 mmol/L (21-32); Chloride 99 mmol/L (98-107); GFR African American 27 mL/min; GFR Non-African American 22 mL/min; Glucose 123 mg/dL (74-106); Potassium 5.4 mmol/L (3.5-5.1); Sodium 132 mmol/L (136-145)
[2020-02-29 05:02] LABS: Blast Cells 10; Lymphocytes % (manual) 80 (10.0-50.0); Monocytes % (manual) 5 (0-12)
[2020-02-29] MEDS: SODIUM ZIRCONIUM CYCL 10 GM PAK PO SCH ×2 (05:43→17:01)
--- NOTE | 2020-02-29 05:45 | NUR ---
AM CARE PATIENT GIVEN PARTIAL LINEN CHANGE. PATIENT CLEANSED USING CHG WIPES. NEW LINEN PROVIDED TO PATIENT. PATIENT REFUSED GOWN CHANGE AT THIS TIME. NEW CHUX PLACED UNDER PATIENT. NEW SHEET AND WARM BLANKETS PROVIDED TO PATIENT. SKIN REASSESSED DURING THIS TIME, NO CHANGES. PATIENT ABLE TO HELP WITH TURNING AND REPOSITIONING.
--- NOTE | 2020-02-29 06:27 | NUR ---
Respiratory note: PT IS RESTING COMFORTABLY. NO RESPIRATORY DISTRESS NOTED AT THIS TIME. SP02 100% ON 2LNC, HR 73, RR 14, BS CLEAR/DIMINISHED AT THE BASES. PRN MEDNEB TX NOT INDICATED AT THIS TIME. PT INFORMED TO PUSH CALL BUTTON IF INCREASED WOB, SOB, OR WHEEZING OCCURS. WILL CONTINUE TO MONITOR PT. CHARTING COMPLETE FROM OUTSIDE OF PT ROOM PER COVID-19 PRECAUTIONS/PROTOCOL.
--- NOTE | 2020-02-29 07:16 | NUR ---
CLOSING PATIENT RESTING IN BED, CONNECTED TO CONTINUOUS BEDSIDE MONITORS. HEART RATE IN 70'S, SPO2 100%. NO SIGNS OF DISTRESS NOTED. CARE ENDORSED TO AM SHIFT RN TO ASSUME CARE OF PATIENT.
[2020-02-29] MEDS: PHENYLEPHRINE INJ 40 MG in SODIUM CHL 0.9% 250 ML IV SCH (07:43)
[2020-02-29] MEDS: CLOPIDOGREL BISULFATE 75 MG TAB PO SCH (07:50)
[2020-02-29] MEDS: ENOXAPARIN SOD 60 MG/0.6 ML SYRINGE SC SCH (07:51)
[2020-02-29 08:00] VITALS: BP 113/57
--- NOTE | 2020-02-29 08:15 | NUR ---
DR. LOPEZ AT BEDSIDE: ORDERS MD UPDATED ON PT'S CURRENT STATUS, LABS FROM THIS AM, AND POC FOR TODAY. PATIENT CURRENTLY RECEIVING HD AT BEDSIDE WITH HD RNALLEY. CONTINUE CARE. WILL CARRY OUT OTHER ORDERS GIVEN.
[2020-02-29] MEDS: cefTRIAXone 1GM/50ML D5W 50 ML IV SCH (09:26)
[2020-02-29] MEDS: FUROSEMIDE 40 MG/4 ML VIAL IV SCH (09:27)
[2020-02-29] MEDS: ASPirin 81 mg TAB PO SCH (09:27)
[2020-02-29] MEDS: CARVEDILOL 3.125 MG TAB PO SCH ×2 (09:28→21:10)
[2020-02-29] MEDS: DexAMETHasone 4 MG TAB PO SCH (09:28)
[2020-02-29] MEDS: PANTOPRAZOLE 40 MG/10 ML VIAL INJ IV SCH (09:28)
[2020-02-29] MEDS: IBRUTINIB 280 MG PO SCH (09:28)
[2020-02-29] MEDS: hydroxyUREA 500 MG CAP PO SCH ×2 (09:29→21:10)
--- NOTE | 2020-02-29 09:45 | NUR ---
DR. HARVEY AT BEDSIDE: ORDERS MD UPDATED ON PT'S CURRENT STATUS, LABS AND POC FOR TODAY. PATIENT CONTINUES ON HD AT THIS TIME. WILL CONTINUE TO MONITOR. WILL CARRY OUT ANY FURTHER ORDERS GIVEN. CONTINUE CARE.
[2020-02-29 12:00] VITALS: BP 139/51
--- NOTE | 2020-02-29 14:50 | NUR ---
DR. UP AT BEDSIDE: UPDATE MD UPDATED ON PT'S TRENDING LABS, STATUS AND POC AT THIS TIME. NO FURTHER ORDERS GIVEN AT THIS TIME. CONTINUE CARE. MD TALKING WITH DAUGHTER OVER THEN PHONE AT THIS TIME.
[2020-02-29 16:00] VITALS: BP 128/59
[2020-02-29] MEDS ORDERED: SODIUM ZIRCONIUM CYCL 10 GM PAK PO SCH (16:45)
--- NOTE | 2020-02-29 18:20 | NUR ---
RT NOTE: PT ON 2LPM NC SPO2 98%, WITH NO DISTRESS NOTED. NO TX INDICATED
--- NOTE | 2020-02-29 19:50 | NUR ---
OPENING NOTE REPORT RECEIVED FROM JIMI RN. THIS IS A POSITIVE COVID PATIENT ON NOVEL RESPIRATORY ISOLATION. PATIENT IS A/OX4 CONNECTED TO CONTINUOUS BEDSIDE MONITORS. PATIENT IS GEORGIAN SPEAKING AND ABLE TO VERBALIZE ALL NEEDS. PATIENT IS ON 2L NASAL CANNULA, SPO2 100%. PHYSICAL ASSESSMENT DONE-SEE INTERVENTIONS. 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 IV TO LEFT HAND 22G INTACT AND PATENT. POC DISCUSSED, CALL LIGHT WITHIN REACH.
[2020-02-29 20:00] VITALS: BP 142/57
[2020-02-29] MEDS: ATORVASTATIN 20 MG TAB PO SCH (21:11)
[2020-03-01] VITALS (7 sets, daily range): BP systolic 95–164; BP diastolic 44–75
[2020-03-01 04:26] LABS: Calcium 6.2 mg/dL (8.5-10.1); Potassium 4.1 mmol/L (3.5-5.1)
[2020-03-01 04:28] LABS: BUN/Creatinine Ratio 12.5
--- NOTE | 2020-03-01 05:30 | NUR ---
AM CARE PATIENT PROVIDED WITH LINEN CHANGE. PATIENT REFUSED BED BATH.
--- NOTE | 2020-03-01 06:02 | NUR ---
PRN [place] TX NOT INDICATED AT HIS TIME. PT DENIES SOB OR ANY OTHER RESPIRATORY DISTRESS. PT ON 2L/MIN VIA NC. 100% O2 SATS, HR 81 BPM, RR18 BPM, BP 142/69. WILL CONTINUE TO MONITOR PT.
[2020-03-01 06:22] LABS: Hemoglobin 7.6 g/dL (13.5-17.5); Mean Corpuscular Hemoglobin 30.4 pg (28.0-32.0)
[2020-03-01 06:25] LABS: Hematocrit 22.8 % (41.0-53.0); Mean Corpuscular Hgb Conc. 33.2 g/dL (32.0-36.0); Mean Corpuscular Volume 91.7 fL (80.0-100.0); Platelet Count (auto) 31 10^3/uL (140-450); Red Blood Cells 2.49 10^6/uL (4.5-5.90); Red Cell Distribution Width 14.8 % (11.8-14.3)
[2020-03-01 06:35] LABS: Band Neutrophils % (manual) 0; Basophils % (manual) 0 (0.0-2.0); Eosinophils % (manual) 0 (0-7); Metamyelocytes % 0; Monocytes % (manual) 0 (0-12); Myelocytes % 0; Promyelocytes % 0; White Blood Cell 185.4 10^3/uL (4.4-10.8)
[2020-03-01] MEDS ORDERED: SODIUM CHL 0.9% 1000 ML BAG XX ONE (07:00)
--- NOTE | 2020-03-01 07:21 | NUR ---
REPORT RECEIVED FROM DATA TRANSCRIBER RN
--- NOTE | 2020-03-01 07:21 | NUR ---
CLOSING PATIENT IS SLEEPING CONNECTED TO CONTINUOUS BEDSIDE MONITORS. PATIENT STILL IN AFIB HEART RATE FLUCTUATING 60-90'S. SPO2 AT 100%. NO SIGNS OF DISTRESS NOTED. CALL LIGHT WITHIN REACH. CARE ENDORSED TO DAYSHIFT ОЛЬГА VERDUZCO TO ASSUME CARE OF PATIENT.
--- NOTE | 2020-03-01 07:43 | NUR ---
DIALYSIS NURSE AT BEDSIDE
[2020-03-01] MEDS: FUROSEMIDE 40 MG/4 ML VIAL IV SCH (09:57)
[2020-03-01] MEDS: IBRUTINIB 280 MG PO SCH (09:58)
[2020-03-01] MEDS: CARVEDILOL 3.125 MG TAB PO SCH ×2 (09:58→21:49)
[2020-03-01] MEDS: cefTRIAXone 1GM/50ML D5W 50 ML IV SCH (09:58)
[2020-03-01] MEDS: DexAMETHasone 4 MG TAB PO SCH (09:58)
[2020-03-01] MEDS: ASPirin 81 mg TAB PO SCH (09:58)
[2020-03-01] MEDS: PANTOPRAZOLE 40 MG/10 ML VIAL INJ IV SCH (09:58)
[2020-03-01] MEDS: hydroxyUREA 500 MG CAP PO SCH ×2 (09:58→21:50)
[2020-03-01] MEDS: ENOXAPARIN SOD 60 MG/0.6 ML SYRINGE SC SCH (09:59)
[2020-03-01] MEDS: SODIUM ZIRCONIUM CYCL 10 GM PAK PO SCH (09:59)
[2020-03-01] MEDS: CLOPIDOGREL BISULFATE 75 MG TAB PO SCH (09:59)
--- NOTE | 2020-03-01 10:52 | NUR ---
DR. GUILLEN AT BEDSIDE
[2020-03-01 11:24] LABS: Blast Cells 9; Lymphocytes % (manual) 43 (10.0-50.0); Reactive Lymphocytes 46
--- NOTE | 2020-03-01 12:25 | NUR ---
STOOL SENT TO LAB VIA BULLET FOR C DIFF
--- NOTE | 2020-03-01 13:42 | NUR ---
PARTIAL LINEN CHANGE PERFORMED AT THIS TIME
--- NOTE | 2020-03-01 14:11 | NUR ---
Nutrition Followup Notes Pt wt is 62.7 kg Pt is positive for COVID. Pt was awake with RN at bedside when rounded this morning. Pt is with a Cardiac diet, appetite is poor aeb ave 25% PO intake over 2 days per RN doc. Pt with no distress per RN doc. Will continue to monitor PO status, skin status, pertinent labs and weight trends. Will f/u in 3-5 days. Recommendation: Suggest a Renal Standard diet as pt with Stage 4 CKD Est Energy needs: 1076-6645 kcals (30-35 kcal/kgBW) d/t pt with ESRD with HD Est Protein needs: 68-74 gms/day (1.1-1.2 gm/kgBW) Will continue to monitor and reassess prn. LABS: BUN 35 H, CR 2.79 H, CA 6.2 L, ALB 2.6 L GI: Pt with no noted BM BS: 16 mod risk Refer to wound assessment report for full details. PES: Altered nutrition related lab values r/t Current/chronic medical condition aeb elev RFTs. low GFR, hyperglycemia, hypocalcemia, mod hypoalbuminemia Comments Will continue to monitor PO status, skin status, pertinent labs and weight trends. Will f/u in 3-5 days. 1) Continue to closely monitor pt PO intake to meet at least 75% of meals 2) Continue current plan of care
--- NOTE | 2020-03-01 15:46 | NUR ---
FAMILY DAUGHTER UPDATED ON PATIENT STATUS. ALL QUESTIONS AND CONCERNS ADDRESSED AT THIS TIME
--- NOTE | 2020-03-01 17:51 | NUR ---
PARTIAL LINEN CHANGE PERFORMED AT THIS TIME
--- NOTE | 2020-03-01 18:31 | NUR ---
ASSESSED PT FOR MED NEB BREATHING TX, PT ON 2L NC WITH SPO2 100%, HR 73, RR 14, BP 118/45 NO DISTRESS NOTED. WILL CONTINUE TO MONITOR PT.
--- NOTE | 2020-03-01 20:00 | NUR ---
OPENING NOTE REPORT RECEIVED FROM JIMI RN PATIENT IS A/OX4 CONNECTED TO CONTINUOUS BEDSIDE MONITORS. PHYSICAL ASSESSMENT DONE-SEE INTERVENTIONS. FISTULA TO RIGHT UPPER ARM WITH BRUIT AND THRILL PRESENT. LEFT HAND 22G IV PATENT AND SALINE LOCKED. POC DISCUSSED WITH PATIENT. PATIENT DENIES ANY PAIN OR DISTRESS. CALL LIGHT WITHIN REACH.
--- NOTE | 2020-03-01 20:45 | NUR ---
PM CARE PATIENT HAD INCONTINENT EPISODE OF LOOSE BROWN BM. PATIENT CLEANSED WITH WARM SOAPY WASH CLOTHS. NEW LINEN PROVIDED TO PATIENT. PATIENT ABLE TO TOLERATE TURNS WITHOUT DIFFICULTY.
[2020-03-01] MEDS: ATORVASTATIN 20 MG TAB PO SCH (21:50)
--- NOTE | 2020-03-01 22:15 | NUR ---
REPORT CALLED AND GAVE REPORT TO ОЛЬГА TURNER TO ASSUME CARE OF PATIENT. FULL SBAR GIVEN. ALL QUESTIONS ANSWERED.
--- NOTE | 2020-03-01 22:37 | NUR ---
TRANSFER TO TELE PATIENT TRANSFERRED TO ROOM 233 VIA BED. PATIENT BELONGINGS ALL TAKEN WITH PATIENT. PATIENT TRANSPORTED WITH TELE BOX AND OXYGEN TANK AND CHART. NO DISTRESS AT TIME OF TRANSFER. ACCEPTING RN YUE.
[2020-03-02 05:00] VITALS: BP 100/50
[2020-03-02 05:41] LABS: Hemoglobin 7.9 g/dL (13.5-17.5); Platelet Count (auto) 22 10^3/uL (140-450); Red Cell Distribution Width 15.3 % (11.8-14.3)
[2020-03-02 05:45] LABS: Hematocrit 25.6 % (41.0-53.0); Mean Corpuscular Hemoglobin 29.9 pg (28.0-32.0); Mean Corpuscular Hgb Conc. 30.7 g/dL (32.0-36.0); Mean Corpuscular Volume 97.1 fL (80.0-100.0); Red Blood Cells 2.64 10^6/uL (4.5-5.90)
[2020-03-02 06:10] LABS: Band Neutrophils % (manual) 0; Basophils % (manual) 0 (0.0-2.0); Eosinophils % (manual) 0 (0-7); Metamyelocytes % 0; Myelocytes % 0; Promyelocytes % 0; Reactive Lymphocytes 0
--- NOTE | 2020-03-02 06:15 | NUR ---
Respiratory note: POX CHECK DONE BY RT. HR 82, RR 16, SPO2 100% ON 1 L NC, BS CLEAR AND DIMINISHED. NO SIGNS OR SYMPTOMS OF RESPIRATORY DISTRESS NOTED AT THIS TIME.
[2020-03-02 06:29] LABS: Potassium 3.2 mmol/L (3.5-5.1)
[2020-03-02 06:33] LABS: BUN/Creatinine Ratio 15.4; Calcium 6.5 mg/dL (8.5-10.1)
[2020-03-02 06:40] LABS: Blast Cells 15; Lymphocytes % (manual) 77 (10.0-50.0); Monocytes % (manual) 4 (0-12)
--- NOTE | 2020-03-02 07:00 | NUR ---
closing note pt dangling at bedside. respirations even nonlabored on 2Lnc. no c/o pain or discomfort. bed in low locked position, call light within reach.
--- NOTE | 2020-03-02 07:10 | NUR ---
OPENING SHIFT NOTE ASSUMED CARE OF PATIENT FROM MECHANICAL ENGINEERING OFFICER ОЛЬГА BARRON. PATIENT HAS NO S/S OF DISTRESS/SOB OR PAIN. INSTRUCTED PATIENT ON POC, PATIENT VERBALIZED UNDERSTANDING. BED IS IN LOWEST POSITION WITH SIDE RAILS RAISED X2, BED WHEELS LOCKED, AND MAR[place]UY LIGHT IS WITHIN REACH. WILL CONTINUE TO MONITOR.
[2020-03-02 08:47] VITALS: BP 128/59
[2020-03-02] MEDS: IBRUTINIB 280 MG PO SCH (10:00)
[2020-03-02] MEDS: SODIUM ZIRCONIUM CYCL 10 GM PAK PO SCH (10:00)
[2020-03-02] MEDS: DexAMETHasone 4 MG TAB PO SCH (10:55)
[2020-03-02] MEDS: ASPirin 81 mg TAB PO SCH (10:55)
[2020-03-02] MEDS: CLOPIDOGREL BISULFATE 75 MG TAB PO SCH (10:55)
[2020-03-02] MEDS: FUROSEMIDE 40 MG/4 ML VIAL IV SCH (10:56)
[2020-03-02] MEDS: CARVEDILOL 3.125 MG TAB PO SCH ×2 (10:57→22:00)
[2020-03-02] MEDS: PANTOPRAZOLE 40 MG/10 ML VIAL INJ IV SCH (10:57)
[2020-03-02] MEDS: ENOXAPARIN SOD 60 MG/0.6 ML SYRINGE SC SCH (10:57)
[2020-03-02] MEDS: cefTRIAXone 1GM/50ML D5W 50 ML IV SCH (10:57)
[2020-03-02] MEDS: hydroxyUREA 500 MG CAP PO SCH ×2 (11:09→22:58)
[2020-03-02] MEDS ORDERED: POTASSIUM EFFERVESENT TAB 25 MEQ PO ONE (11:45)
[2020-03-02 12:30] VITALS: BP 110/60
[2020-03-02 16:56] VITALS: BP 100/66
--- NOTE | 2020-03-02 18:59 | NUR ---
CLOSING SHIFT NOTE PATIENT HAS NO S/S OF DISTRESS/SOB OR PAIN. ENDORSED CARE TO SCRAP METAL PROCESSING WORKER RN.
--- NOTE | 2020-03-02 19:10 | NUR ---
opening note pt A&Ox4. respirations even and nonlabored on room air. no s/s of pain or discomfort, will continue to monitor. bed in low locked position, call light within reach.
[2020-03-02 22:00] VITALS: BP 104/61
--- NOTE | 2020-03-02 22:45 | NUR ---
Respiratory note: ASSESSMENT FOR PRN MED NEB TX. PT IN NO RESPIRATORY DISTRESS, RN AT BEDSIDE. WILL CONTINUE TO MONITOR.
[2020-03-02] MEDS: ATORVASTATIN 20 MG TAB PO SCH (22:58)
[2020-03-02] MEDS ORDERED: TEMAZEPAM 15 MG CAP PO PRN (23:30)
[2020-03-03 05:00] VITALS: BP 121/53
--- NOTE | 2020-03-03 06:20 | NUR ---
PT ASSESSED FOR PRN HHN TX. PT IS ON ROOM AIR, SPO2 92%, HR 80, RR 20. NO S/S OF RESPIRATORY DISTRESS. PRN TX NOT INDICATED AT THIS TIME. WILL CONTINUE TO MONITOR.
--- NOTE | 2020-03-03 07:00 | NUR ---
OPENING SHIFT NOTE ASSUMED CARE OF PATIENT FROM SUPERVISOR SCENIC ARTS ОЛЬГА BARRON. PATIENT HAS NO S/S OF DISTRESS/SOB OR PAIN. INSTRUCTED PATIENT ON POC, PATIENT VERBALIZED UNDERSTANDING. BED IS IN LOWEST POSITION WITH SIDE RAILS RAISED X2, BED WHEELS LOCKED, URINAL AND CALL LIGHT IS WITHIN REACH. WILL CONTINUE TO MONITOR.
--- NOTE | 2020-03-03 07:01 | NUR ---
closing note pt resting in semi fowlers with HOB at 30 degrees. respirations even and nonlabored on room air. no s/s of pain or distress at this time. bed in low locked position, call light within reach.
[2020-03-03 07:35] LABS: Hematocrit 23.8 % (41.0-53.0)
[2020-03-03 07:40] LABS: Hemoglobin 7.4 g/dL (13.5-17.5); Mean Corpuscular Hemoglobin 30.1 pg (28.0-32.0); Mean Corpuscular Volume 97.1 fL (80.0-100.0); Platelet Count (auto) 23 10^3/uL (140-450); Red Blood Cells 2.45 10^6/uL (4.5-5.90); Red Cell Distribution Width 15.4 % (11.8-14.3)
[2020-03-03 07:48] LABS: White Blood Cell 115.9 10^3/uL (4.4-10.8)
[2020-03-03 07:51] LABS: Band Neutrophils % (manual) 0; Basophils % (manual) 0 (0.0-2.0); Eosinophils % (manual) 0 (0-7); Metamyelocytes % 0; Monocytes % (manual) 0 (0-12); Myelocytes % 0; Promyelocytes % 0; Reactive Lymphocytes 0
[2020-03-03 07:53] LABS: Potassium 3.6 mmol/L (3.5-5.1)
[2020-03-03 07:59] LABS: BUN/Creatinine Ratio 15.5
[2020-03-03 08:04] LABS: Calcium 5.9 mg/dL (8.5-10.1)
[2020-03-03 08:19] LABS: Blast Cells 12; Lymphocytes % (manual) 85 (10.0-50.0)
[2020-03-03 09:00] VITALS: BP 110/52
[2020-03-03] MEDS: FUROSEMIDE 40 MG/4 ML VIAL IV SCH (09:25)
[2020-03-03] MEDS: ASPirin 81 mg TAB PO SCH (09:25)
[2020-03-03] MEDS: ENOXAPARIN SOD 60 MG/0.6 ML SYRINGE SC SCH (09:26)
[2020-03-03] MEDS: CLOPIDOGREL BISULFATE 75 MG TAB PO SCH (09:26)
[2020-03-03] MEDS: CARVEDILOL 3.125 MG TAB PO SCH ×2 (09:26→22:46)
[2020-03-03] MEDS: cefTRIAXone 1GM/50ML D5W 50 ML IV SCH (09:54)
[2020-03-03] MEDS: DexAMETHasone 4 MG TAB PO SCH (09:54)
[2020-03-03] MEDS: PANTOPRAZOLE 40 MG/10 ML VIAL INJ IV SCH (09:54)
[2020-03-03] MEDS: hydroxyUREA 500 MG CAP PO SCH ×2 (09:54→22:46)
[2020-03-03] MEDS: IBRUTINIB 280 MG PO SCH (09:55)
[2020-03-03] MEDS ORDERED: SODIUM CHL 0.9% 1000 ML BAG XX ONE (12:00)
[2020-03-03 12:57] VITALS: BP 106/70
--- NOTE | 2020-03-03 15:00 | NUR ---
SPOKE WITH DAUGHTER FLOOR AND PER DAUGHTER PATIENT HAS CHAIR TIME AT DIALYSIS CLINIC ON MONDAYS, WEDNESDAYS AND FRIDAYS. INFORMED DR. BROUSSARD.
--- NOTE | 2020-03-03 15:38 | NUR ---
SPOKE WITH BLANKET FOLDER MISSION COORDINATOR AND INFORMED MD PATIENT IS GOING TO BE DISCHARGED TODAY, MD IS AWARE AND CLEARED PATIENT FOR DISCHARGE.
--- NOTE | 2020-03-03 16:30 | NUR ---
RECEIVED CALL FROM DR. BROUSSARD AND PER PATIENT'S DISCHARGE WILL BE HELD FOR TODAY AND DISCHARGE WILL BE TOMORROW. PER PLEASE PAGE DR. UP FOR SCRIPTS. PAGED MD UP. AWAITING CALL BACK.
[2020-03-03 16:54] VITALS: BP 135/65
--- NOTE | 2020-03-03 19:01 | NUR ---
CLOSING SHIFT NOTE ENDORSED CARE TO AIR AND WATER FILLER RN. PATIENT HAS NO S/S OF DISTRESS/SOB OR PAIN AT THIS TIME.
[2020-03-03 21:55] VITALS: BP 122/43
[2020-03-03] MEDS: ATORVASTATIN 20 MG TAB PO SCH (22:46)
[2020-03-04] VITALS (10 sets, daily range): BP systolic 118–165; BP diastolic 42–76
[2020-03-04 06:43] LABS: Hematocrit 21.1 % (41.0-53.0); Mean Corpuscular Hemoglobin 29.9 pg (28.0-32.0); Mean Corpuscular Hgb Conc. 31.3 g/dL (32.0-36.0); Mean Corpuscular Volume 95.6 fL (80.0-100.0); Red Blood Cells 2.21 10^6/uL (4.5-5.90); Red Cell Distribution Width 15.1 % (11.8-14.3)
[2020-03-04 06:53] LABS: Hemoglobin 6.6 g/dL (13.5-17.5); White Blood Cell 90.6 10^3/uL (4.4-10.8)
[2020-03-04 06:54] LABS: Platelet Count (auto) 17 10^3/uL (140-450)
[2020-03-04 06:55] LABS: Band Neutrophils % (manual) 0; Basophils % (manual) 0 (0.0-2.0); Eosinophils % (manual) 0 (0-7); Metamyelocytes % 0; Myelocytes % 0; Promyelocytes % 0
--- NOTE | 2020-03-04 06:55 | NUR ---
critical lab 6.6 hgb 17 platelets paged hospitalist Alhaji
[2020-03-04 06:58] LABS: Calcium 6.2 mg/dL (8.5-10.1); Potassium 3.8 mmol/L (3.5-5.1)
[2020-03-04 07:00] LABS: BUN/Creatinine Ratio 15.4
--- NOTE | 2020-03-04 07:10 | NUR ---
spoke with MAGGIE Mane new orders received: 1 unit packed red blood cells, and 1 pack of platelets. orders read back and verified. will carry out.
[2020-03-04 07:55] LABS: Blast Cells 4; Lymphocytes % (manual) 85 (10.0-50.0); Monocytes % (manual) 1 (0-12); Reactive Lymphocytes 8
--- NOTE | 2020-03-04 08:03 | NUR ---
RT NOTE: NO TX INDICATED AT THIS TIME. NO SIGNS OF RESPIRATORY DISTRESS. ON 1LNC SPO2 95 HR 71 RR 20. LUNG SOUNDS CLEAR/DIMINISHED T/O. PT AWARE TO PAGE FOR RESPIRATORY SHOULD NEED FOR TX ARISE. WILL CONTINUE TO MONITOR.
[2020-03-04] MEDS: CARVEDILOL 3.125 MG TAB PO SCH ×2 (10:00→21:05)
[2020-03-04] MEDS: CLOPIDOGREL BISULFATE 75 MG TAB PO SCH ×2 (10:00→10:54)
[2020-03-04] MEDS: ENOXAPARIN SOD 60 MG/0.6 ML SYRINGE SC SCH ×2 (10:00→10:55)
--- NOTE | 2020-03-04 10:30 | NUR ---
IV insertion IV access obtained, via clean sterile technique by inserting 20 gauge catheter at LFA after 1 attempt. IV secured properly. No trauma to site. Patient tolerated procedure well.
[2020-03-04] MEDS: PANTOPRAZOLE 40 MG/10 ML VIAL INJ IV SCH (10:53)
[2020-03-04] MEDS: FUROSEMIDE 40 MG/4 ML VIAL IV SCH (10:53)
[2020-03-04] MEDS: DexAMETHasone 4 MG TAB PO SCH (10:54)
[2020-03-04] MEDS: ASPirin 81 mg TAB PO SCH (10:54)
[2020-03-04] MEDS: hydroxyUREA 500 MG CAP PO SCH (10:54)
[2020-03-04] MEDS: cefTRIAXone 1GM/50ML D5W 50 ML IV SCH (10:54)
[2020-03-04] MEDS: IBRUTINIB 280 MG PO SCH (10:54)
--- NOTE | 2020-03-04 11:00 | NUR ---
Nutrition Followup Notes Pt wt is 64.2 kg Pt is positive for COVID in the covid isolation wing. Pt has a cardiac 2g Na, low fat diet. Pt has a fair appetite aeb pt with an avg of 65% po intake x 2 days per RN note. Per RN note pt's daughter reports pt receives dialysis M/W/F at a dialysis clinic. Recommendation: Suggest a Renal Standard diet as pt with Stage 4 CKD Est Energy needs: 5802-8873 kcals (30-35 kcal/kgBW) d/t pt with ESRD with HD Est Protein needs: 68-74 gms/day (1.1-1.2 gm/kgBW) Will continue to monitor and reassess prn. LABS: BUN 49H, Creat 3.19H, Alb 2.6L, Ca 6.2L GI: Pt with 3 BMs 03/02 per RN note BS: 16 mod risk Refer to wound assessment report for full details. PES: Altered nutrition related lab values r/t Current/chronic medical condition aeb elev RFTs. low GFR, hyperglycemia, hypocalcemia, mod hypoalbuminemia Comments Will continue to monitor PO status, skin status, pertinent labs and weight trends. Will f/u in 3-5 days. 1) Continue to closely monitor pt PO intake to meet at least 75% of meals 2) Continue current plan of care
[2020-03-04] MEDS ORDERED: HYD500C PO (11:30)
[2020-03-04] MEDS ORDERED: CLOP75TA28 PO (11:30)
[2020-03-04] MEDS ORDERED: POM PO (11:30)
[2020-03-04] MEDS ORDERED: FURO1TAB33 PO (11:30)
[2020-03-04] MEDS ORDERED: CAR3125T PO (11:30)
[2020-03-04] MEDS ORDERED: ASPI81CH43 PO (11:30)
[2020-03-04] MEDS ORDERED: ALB5IS NEB (11:30)
[2020-03-04] MEDS ORDERED: DEX4T PO (11:30)
[2020-03-04] MEDS ORDERED: ACE325T PO (11:30)
--- NOTE | 2020-03-04 11:30 | NUR ---
Hospitalist MD Turner at bedside, aware of patient status including low HGB and PLT. Per cont orders for 1 unit of RBC's and PLT. Will carry out new orders and cont to monitor patient.
--- NOTE | 2020-03-04 15:37 | NUR ---
Platelets Patient platelets transfusion started at this time. VSS before and 15 minutes post administration. Will cont to monitor patient.
--- NOTE | 2020-03-04 17:37 | NUR ---
Elizabeth Spoke to MD Johnson, regarding patient scripts. Per MD Johnson, D/C Hydrea and cont Ibrutinib at home. Per MD Johnson, if patient needs, refill, patient will need to see MD Osborne at his office for refill. Will cont to monitor patient.
--- NOTE | 2020-03-04 18:00 | NUR ---
Blood Transfusion Patient's blood transfusion started at this time. VSS before and 15 minutes after transfusion. Will cont to monitor patient.
--- NOTE | 2020-03-04 18:00 | NUR ---
Anticoagulants Patient's morning lovenox and plavix pulled from Pyxis however, wasted due to PLT count of 17 and having taken them into isolation room. Only medication given by this nurse was aspirin 81 mg. Will cont to monitor patient.
--- NOTE | 2020-03-04 19:00 | NUR ---
IV LEAKING IV removal IV DC'd with clean sterile technique, catheter fully intact. Pressure dressing applied to site. Patient tolerated well. IV insertion IV access obtained, via clean sterile technique by inserting 20 gauge catheter at RIGHT after FA attempt(s). IV secured properly. No trauma to site. Patient tolerated well. BLOOD ON SHEETS AND GOWN, PT'S LINENS CHANGED AT THIS TIME AND BLOOD TRANSFUSION CONTINUED
--- NOTE | 2020-03-04 20:30 | NUR ---
hospitalist paged patient feeling anxiety following iv infiltrating. patient's bp at this is 196/ 86. requesting either BP or anxiety medication. will await call back or orders. Addendum: 03/04/20 at 2032 by JOHN MENDEZ RN patient also bleeding from right fistula. per dayshift irwin pt has been bleeding during day. Md castillo aware. Pt ordered plt and and 1 unit of prbc. orders already implemented. Addendum: 03/04/20 at 2034 by JOHN MENDEZ RN md Johnny CASTILLO
--- NOTE | 2020-03-04 21:00 | NUR ---
BLOOD TRANSFUSION FINISHED PT STABLE AT THIS TIME. BLEEDING NOTED STILL AT FISTULA SITE FROM RIGHT UPPER ARM. ORDERS RECEIVED FOR PRESSURE DRESSING. PRESSURE DRESSING APPLIED. WILL CONTINUE TO MONITOR.
[2020-03-04] MEDS: ATORVASTATIN 20 MG TAB PO SCH (21:05)
--- NOTE | 2020-03-04 22:06 | NUR ---
Respiratory note: PT SEEN AND ASSESSED FOR PRN TREATMENT AT 2206. TREATMENT IS NOT INDICATED AT THIS TIME. NO RESPIRATORY DISTRESS NOTED AT THIS TIME. HR 75 RR 18 SP02 93% ON 1L NASAL CANNULA.
[2020-03-05] VITALS (10 sets, daily range): BP systolic 111–176; BP diastolic 56–82
[2020-03-05 05:28] LABS: Hemoglobin 7.6 g/dL (13.5-17.5); Red Blood Cells 2.52 10^6/uL (4.5-5.90)
[2020-03-05 05:31] LABS: Hematocrit 23.7 % (41.0-53.0); Mean Corpuscular Hgb Conc. 31.8 g/dL (32.0-36.0); Mean Corpuscular Volume 94.1 fL (80.0-100.0); Platelet Count (auto) 26 10^3/uL (140-450); Red Cell Distribution Width 14.9 % (11.8-14.3)
[2020-03-05 05:44] LABS: BUN/Creatinine Ratio 19.7; Potassium 4.6 mmol/L (3.5-5.1)
[2020-03-05 06:07] LABS: White Blood Cell 70.3 10^3/uL (4.4-10.8)
[2020-03-05 06:08] LABS: Calcium 5.8 mg/dL (8.5-10.1)
[2020-03-05 06:09] LABS: Band Neutrophils % (manual) 0; Basophils % (manual) 0 (0.0-2.0); Eosinophils % (manual) 0 (0-7); Metamyelocytes % 0; Myelocytes % 0; Promyelocytes % 0
--- NOTE | 2020-03-05 06:09 | NUR ---
HOSPITALIST PAGED CRITICAL LAB VALUES OF A WBC OF 70.3 WHICH IS A DECREASE FROM PREVIOUS LAB. WELL A BUN OF 78. PATIENT IS SCHEDULED FOR DIALYSIS TODAY. PATIENT ALSO HAS AN ELEVATED BP OF 176/69. WILL AWAIT CALL BACK OR ORDERS. Addendum: 03/05/20 at 0614 by JOHN MENDEZ RN PT HAS A DECREASED CALCIUM OF 5.8 WELL. STILL AWAITING CALL BACK
--- NOTE | 2020-03-05 06:14 | NUR ---
Respiratory note: PT SEEN AND ASSESSED FOR PRN TREATMENT. TREATMENT IS NOT INDICATED AT THIS TIME. NO RESPIRATORY DISTRESS NOTED AT THIS TIME. HR 72 RR 16 SP02 100% ON 1.5L NASAL CANNULA.
--- NOTE | 2020-03-05 06:47 | NUR ---
ORDERS RECEIVED PER MD, GIVE MORNING BP MEDS EARLY. ONLY BP MEDS TO GIVE IS LASIX. MEDICATION TO BE GIVEN AT THIS TIME. WILL ENDORSE TO DAYSHIFT
[2020-03-05] MEDS: FUROSEMIDE 40 MG/4 ML VIAL IV SCH (06:55)
[2020-03-05] MEDS ORDERED: SODIUM CHL 0.9% 1000 ML BAG XX ONE (07:00)
--- NOTE | 2020-03-05 07:30 | NUR ---
Opening Shift Note Assumed care of patient, awake and alert. No S/S of distress/SOB or pain. Instructed on POC and to call for assist PRN, will continue to monitor for changes Q1hr and PRN. Fall precautions in place per safety protocol.
[2020-03-05 07:33] LABS: Blast Cells 4; Lymphocytes % (manual) 92 (10.0-50.0); Monocytes % (manual) 1 (0-12); Reactive Lymphocytes 2
[2020-03-05] MEDS: PANTOPRAZOLE 40 MG/10 ML VIAL INJ IV SCH (08:21)
[2020-03-05] MEDS: cefTRIAXone 1GM/50ML D5W 50 ML IV SCH (08:22)
[2020-03-05] MEDS: IBRUTINIB 280 MG PO SCH ×2 (08:22→10:00)
[2020-03-05] MEDS: DexAMETHasone 4 MG TAB PO SCH (08:23)
[2020-03-05] MEDS: CARVEDILOL 3.125 MG TAB PO SCH ×3 (08:23→22:11)
[2020-03-05] MEDS: ASPirin 81 mg TAB PO SCH (10:00)
[2020-03-05] MEDS: CLOPIDOGREL BISULFATE 75 MG TAB PO SCH (10:00)
--- NOTE | 2020-03-05 11:30 | NUR ---
Hospitalist MD Turner at bedside, aware of patient status including low Calcium. Per MD Turner, order CBC after dialysis and if calcium is still low, give 1g IVPB of Calcium Gluconate and D/C patient. Will cont to monitor patient.
[2020-03-05] MEDS ORDERED: DEX4T PO (13:39)
--- NOTE | 2020-03-05 18:38 | NUR ---
Dialysis Patient done with dialysis at this time. 2L out last BP 169/71 HR 86. Patient eating at this time. will cont to monitor at this time.
--- NOTE | 2020-03-05 19:15 | NUR ---
OPENING SHIFT NOTE: Assumed care of patient. Patient is awake, alert and oriented x 4, no s/s of SOB or distress, patient denies pain. Respirations even and unlabored. Bed in lowest locked position with two side rails raised and call baum within reach and bed alarm activated for safety. Instructed on POC and encouraged to call for assistance, all questions and concerns addressed, patient verbalizes understanding. Will continue to monitor Q1 hr and PRN.
[2020-03-05 19:17] LABS: Hemoglobin 8.7 g/dL (13.5-17.5)
[2020-03-05 19:21] LABS: Hematocrit 27.1 % (41.0-53.0); Mean Corpuscular Hemoglobin 29.9 pg (28.0-32.0); Mean Corpuscular Hgb Conc. 32.2 g/dL (32.0-36.0); Mean Corpuscular Volume 92.9 fL (80.0-100.0); Platelet Count (auto) 26 10^3/uL (140-450); Red Blood Cells 2.91 10^6/uL (4.5-5.90); Red Cell Distribution Width 14.6 % (11.8-14.3)
[2020-03-05 19:49] LABS: White Blood Cell 67.8 10^3/uL (4.4-10.8)
[2020-03-05 19:51] LABS: Band Neutrophils % (manual) 0; Basophils % (manual) 0 (0.0-2.0); Eosinophils % (manual) 0 (0-7); Metamyelocytes % 0; Monocytes % (manual) 0 (0-12); Myelocytes % 0; Promyelocytes % 0
[2020-03-05 20:26] LABS: Albumin 2.7 g/dL (3.4-5.0); Calcium 6.4 mg/dL (8.5-10.1); Potassium 3.8 mmol/L (3.5-5.1)
[2020-03-05 20:30] LABS: BUN/Creatinine Ratio 21.1; Bilirubin, Total 0.6 mg/dL (0.2-1.0); Total Protein 5.2 g/dL (6.4-8.2)
[2020-03-05 20:32] LABS: Blast Cells 7
[2020-03-05 20:44] LABS: Lymphocytes % (manual) 83 (10.0-50.0); Reactive Lymphocytes 2
[2020-03-05] MEDS ORDERED: EPOETIN ALFA 4,000 UNIT/ML VL SC ONE (21:00)
--- NOTE | 2020-03-05 21:15 | NUR ---
Clarify Orders Per dayshift RN MD Turner aware of patient status including low Calcium 5.8. Per MD Turner if calcium is still low, give 1g IVPB of Calcium Gluconate and D/C patient. New Calcium results are 6.4. Hospitalist paged to clarify if Calcium Gluconate 1g IVPB still needs to be administered. Awaiting callback.
--- NOTE | 2020-03-05 21:52 | NUR ---
HOSPITALIST Spoke to MAGGIE Mane and orders for 1g Calcium Gluconate IVPB clarified. Will carry out order and administer medication before discharging patient.
--- NOTE | 2020-03-05 21:53 | NUR ---
Respiratory note: NO PRN TX GIVEN AT THIS TIME, NOT INDICATED. NO SOB NOTED, BREATH SOUNDS DIMINISHED THROUGHOUT. SPO2 100% ON 1.5L NC, HR 71, RR 20.
[2020-03-05] MEDS ORDERED: CALCIUM GLUC 4.65meq/50ml D5AE 50 ML IV ONE (22:00)
[2020-03-05] MEDS: ATORVASTATIN 20 MG TAB PO SCH (22:12)
--- NOTE | 2020-03-05 23:50 | NUR ---
DISCHARGE Discharge instructions given as ordered. Encourage to follow up with PMD as instructed. All questions and concerns addressed. Patient verbalized understanding. Medication reconciliation form completed and copy given to patient. Home medications held in Pharmacy returned to patient. IV removed with catheter intact, pressure dressing applied. Patient taken to vehicle via wheelchair accompanied by staff with all personal belongings. No distress noted at time of departure.
== END 2020-03-05 23:54 | disposition home or self-care (01) | DRG 177 ==
LOC: ER 22:40 → OVERFLOW 22:41 → MERGE 22:41 → DOU IN ICU 02-24 07:51 → TELE-EAST 03-01 22:41
PROVIDERS: ADMIT Hospitalist; ATTEND Internal Medicine Pulmonary Disease
PROC: 30230N1 Transfusion of Nonautologous Red Blood Cells into Peripheral Vein, Open Approach (ICD-10-PCS; principal; 2020-02-24)
PROC: 5A1D70Z Performance of Urinary Filtration, Intermittent, Less than 6 Hours Per Day (ICD-10-PCS; 2020-02-24)
PROC: 5A1D70Z Performance of Urinary Filtration, Intermittent, Less than 6 Hours Per Day (ICD-10-PCS; 2020-02-25)
PROC: 5A1D70Z Performance of Urinary Filtration, Intermittent, Less than 6 Hours Per Day (ICD-10-PCS; 2020-02-26)
PROC: 5A1D70Z Performance of Urinary Filtration, Intermittent, Less than 6 Hours Per Day (ICD-10-PCS; 2020-02-27)
PROC: 5A1D70Z Performance of Urinary Filtration, Intermittent, Less than 6 Hours Per Day (ICD-10-PCS; 2020-02-28)
PROC: 5A1D70Z Performance of Urinary Filtration, Intermittent, Less than 6 Hours Per Day (ICD-10-PCS; 2020-02-29)
PROC: 5A1D70Z Performance of Urinary Filtration, Intermittent, Less than 6 Hours Per Day (ICD-10-PCS; 2020-03-01)
PROC: 5A1D70Z Performance of Urinary Filtration, Intermittent, Less than 6 Hours Per Day (ICD-10-PCS; 2020-03-03)
PROC: 30233R1 Transfusion of Nonautologous Platelets into Peripheral Vein, Percutaneous Approach (ICD-10-PCS; 2020-03-04)
PROC: 5A1D70Z Performance of Urinary Filtration, Intermittent, Less than 6 Hours Per Day (ICD-10-PCS; 2020-03-05)
DX: U07.1 COVID-19 (principal); I21.4 Non-ST elevation (NSTEMI) myocardial infarction; J12.89 Other viral pneumonia; N18.6 End stage renal disease; N39.0 Urinary tract infection, site not specified; D61.818 Other pancytopenia; I12.0 Hypertensive chronic kidney disease with stage 5 chronic kidney disease or end stage renal disease; T82.838A Hemorrhage due to vascular prosthetic devices, implants and grafts, initial encounter; C95.10 Chronic leukemia of unspecified cell type not having achieved remission; E87.5 Hyperkalemia; E87.70 Fluid overload, unspecified; Y84.1 Kidney dialysis as the cause of abnormal reaction of the patient, or of later complication, without mention of misadventure at the time of the procedure; Z87.891 Personal history of nicotine dependence; Z99.2 Dependence on renal dialysis; Z91.14 Patient's other noncompliance with medication regimen; Z79.899 Other long term (current) drug therapy
CPT/HCPCS: 36415; 71045; 76705; 80048; 80053; 80061; 81001; 82962; 83605; 83735; 83880; 84132; 84484; 85007; 85014; 85018; 85027; 85060; 85379; 85384; 85610; 85730; 86704; 86706; 86708; 86803; 86850; 86900; 86901; 86920; 87081; 87340; 87493; 90935; 93005; 94640; 94760; C9113; G0378; J0610; J0696; J1642; J1815

== ENCOUNTER 2020-03-12 13:19 | Inpatient (IN) | payer MEDICARE, MEDICAID ==
[~2020-03-12] VITALS: Ht 165.1 cm; Wt 60.2 kg
[2020-03-12] VITALS (7 sets, daily range): BP systolic 104–114; BP diastolic 32–57
[~2020-03-12 13:19] MED LIST changes: +ACE325T PO; +ALB5IS NEB; +CAR3125T PO; +DEX4T PO; +FURO1TAB33 PO; +POM PO; +PRED20TA2 PO
[2020-03-12 17:29] LABS: Hematocrit 18.5 % (41.0-53.0); Mean Corpuscular Hemoglobin 30.9 pg (28.0-32.0); Mean Corpuscular Hgb Conc. 33.1 g/dL (32.0-36.0); Mean Corpuscular Volume 93.2 fL (80.0-100.0); Red Blood Cells 1.99 10^6/uL (4.5-5.90); Red Cell Distribution Width 14.5 % (11.8-14.3); White Blood Cell 19.4 10^3/uL (4.4-10.8)
[2020-03-12 17:33] LABS: Hemoglobin 6.1 g/dL (13.5-17.5); Platelet Count (auto) 17 10^3/uL (140-450)
[2020-03-12 17:35] LABS: Band Neutrophils % (manual) 0; Basophils % (manual) 0 (0.0-2.0); Blast Cells 0; Eosinophils % (manual) 0 (0-7); Metamyelocytes % 0; Myelocytes % 0; Promyelocytes % 0; Reactive Lymphocytes 0
[2020-03-12 17:58] LABS: Albumin 2.6 g/dL (3.4-5.0); Calcium 6.8 mg/dL (8.5-10.1); Potassium 4.7 mmol/L (3.5-5.1)
[2020-03-12 17:59] LABS: Lymphocytes % (manual) 88 (10.0-50.0); Monocytes % (manual) 1 (0-12)
[2020-03-12 18:01] LABS: BUN/Creatinine Ratio 11.3
[2020-03-12 18:04] LABS: Bilirubin, Total 0.8 mg/dL (0.2-1.0)
[2020-03-12] MEDS ORDERED: ALUM & MAG HYDROX-SIMETH LIQ(MAALOX) 30 ML PO PRN (18:45)
[2020-03-12] MEDS ORDERED: HYDROcodone-ACET 5/325MG TAB PO PRN (18:45)
[2020-03-12] MEDS ORDERED: HYDROmorphone HCL 2 MG/ML VL IV PRN (18:45)
[2020-03-12] MEDS ORDERED: MORPHINE SULF INJ 2 MG/ML SYRINGE 1ML IV PRN ×2 (18:45)
[2020-03-12] MEDS ORDERED: ONDANSETRON HCL 4 MG/2 ML VIAL IV PRN (18:45)
[2020-03-12] MEDS ORDERED: DOCUSATE SOD 100 MG CAP PO PRN (18:45)
[2020-03-12] MEDS ORDERED: NITROGLYCERIN 0.4 MG SL TAB SL PRN (18:45)
[2020-03-12] MEDS ORDERED: LORazepam 0.5 MG TAB PO PRN (18:45)
[2020-03-12] MEDS ORDERED: POM PO (18:56)
[2020-03-12] MEDS ORDERED: CLOP75TA41 PO (18:57)
[2020-03-12] MEDS ORDERED: HYDR500C PO (18:57)
[2020-03-12] MEDS ORDERED: ASPI-498 PO ×2 (18:57→19:00)
[2020-03-12] MEDS ORDERED: CYAN500T15 PO (18:58)
[2020-03-12] MEDS ORDERED: PIPERACILLIN-TAZOB 2.25GM 50 ML IV ONE (19:00)
[2020-03-12 22:40] LABS: Cholesterol 86 mg/dL (< 200); HDL Cholesterol 36 mg/dL (40-59); LDL Cholesterol 43 mg/dL (< 100); Triglycerides 104 mg/dL (< 150)
--- NOTE | 2020-03-12 22:50 | NUR ---
Telemetry admit from ER INE[facility] GREEN admitted to Telemetry unit after SBAR received. Patient oriented to SCOTT CAN RN primary RN, unit, room, bed, and unit policies regarding patient care and visiting hours. Patient now on continuous telemetry monitoring, tele box # 6 and telemetry reading on arrival to unit is Sinus Ryhthm at 58BPM. Patient placed on bedside oxygen, weighed by bedscale and encouraged to call if they need something. All questions and concerns addressed, patient verbalized understanding. Per report from the COUNTER CONTROL OPERATOR, patient started transfusing at 2130. Received patient at 2250. No distress noted, patient continues blood transfusion, on room air saturating at 98%. Will continue to monitor.
[2020-03-13] VITALS (13 sets, daily range): BP systolic 123–140; BP diastolic 52–76
--- NOTE | 2020-03-13 00:39 | NUR ---
Blood transfusion ended. Blood transfusion ended. No adverse reactions noted. Vitals are 128/57, temp 98.1, 97% on room air, pulse 55, respirations 15. Patient is resting in bed with eyes closed, no distress noted.
--- NOTE | 2020-03-13 02:07 | NUR ---
Called lab to request [facility] in house Covid 19 swab
--- NOTE | 2020-03-13 02:31 | NUR ---
COVID 19 SPECIMEN WALK TO LAB BY ОЛЬГА ESCOTO.
--- NOTE | 2020-03-13 06:12 | NUR ---
ROUNDS Patient has been ambulating with assist up and down to the commode to urinate X 4 tonight. Saturating 98% on room air, denies pain and no distress noted.
[2020-03-13] MEDS ORDERED: hydrALAZINE HCL 20 MG/ML VL IV PRN (06:45)
--- NOTE | 2020-03-13 07:15 | NUR ---
Opening Shift Note Assumed care of patient, awake and alert. No S/S of distress/SOB or pain. Instructed on POC and to call for assist PRN, will continue to monitor for changes Q1hr and PRN.
[2020-03-13] MEDS ORDERED: ALBUTEROL SULF 2.5 MG/0.5ML(0.5%) NEB SOLN NEB SCH (10:00)
[2020-03-13] MEDS ORDERED: IPRATROPIUM BROM 0.5 MG/2.5ML INH SOL NEB SCH (10:00)
[2020-03-13 10:03] LABS: Amphetamine Screen, Urine NEGATIVE (NEGATIVE); Barbiturate Scree,Urine NEGATIVE (NEGATIVE); Benzodiazephine Screen, Urine NEGATIVE (NEGATIVE); Cannabinoid Screen, Urine NEGATIVE (NEGATIVE); Cocaine Screen, Urine NEGATIVE (NEGATIVE); Opiate Scree,Urine NEGATIVE (NEGATIVE); Phencyclidine Screen, Urine NEGATIVE (NEGATIVE); Urine Bacteria FEW /hpf (None Seen); Urine Blood Negative /uL (Negative); Urine Hyaline Cast FEW /lpf (0 - 2); Urine Specific Gravity 1.009 (1.001-1.035); Urine WBC 1 /hpf (0 - 3)
[2020-03-13 10:13] LABS: Alcohol, Urine < 3.0 mg/dL (0-10)
[2020-03-13] MEDS: PIPERACILLIN-TAZOB 2.25GM 50 ML IV SCH (10:38)
[2020-03-13] MEDS: CARVEDILOL 3.125 MG TAB PO SCH ×2 (10:42→23:30)
[2020-03-13] MEDS: DexAMETHasone 4 MG TAB PO SCH (10:43)
[2020-03-13] MEDS: CYANOCOBALAMIN 500 MCG TAB PO SCH (10:43)
[2020-03-13] MEDS: FUROSEMIDE 20 MG/2 ML VIAL IV SCH (18:00)
--- NOTE | 2020-03-13 20:10 | NUR ---
platelets transfusion ended. platelets transfusion ended. No adverse reactions noted. Vitals are 139/58, temp 98.3, 100% on room air, pulse 60, respirations 18. no s/s of distress noted or pain .
--- NOTE | 2020-03-13 21:42 | NUR ---
Respiratory note: SPO2 98% ON R/A, HR 62, RR 18. NO SOB NOTED. NO MDI TX GIVEN AT THIS TIME, NOT INDICATED AND PENDING COVID 19 RESULTS.
[2020-03-13] MEDS: ALBUTEROL SULF HFA 90MCG INH 200DOSE IN SCH (22:00)
[2020-03-14 00:02] VITALS: BP 139/58
--- NOTE | 2020-03-14 00:02 | NUR ---
Blood transfusion ended. Blood transfusion ended. No adverse reactions noted. Vitals are 139/58, temp 97.9, 97% on room air, pulse 62, respirations 18. no s/s of distress noted or pain .
[2020-03-14] MEDS: PIPERACILLIN-TAZOB 2.25GM 50 ML IV SCH ×3 (00:09→22:53)
[2020-03-14 05:00] VITALS: BP 141/55
[2020-03-14 05:17] LABS: Platelet Count (auto) 32 10^3/uL (140-450)
[2020-03-14 05:18] LABS: Hemoglobin 8.1 g/dL (13.5-17.5); Mean Corpuscular Hgb Conc. 35.2 g/dL (32.0-36.0); Red Blood Cells 2.53 10^6/uL (4.5-5.90); Red Cell Distribution Width 13.9 % (11.8-14.3); White Blood Cell 10.5 10^3/uL (4.4-10.8)
[2020-03-14 05:28] LABS: Basophils % (manual) 0 (0.0-2.0); Blast Cells 0; Eosinophils % (manual) 0 (0-7); Metamyelocytes % 0; Myelocytes % 0; Promyelocytes % 0; Reactive Lymphocytes 0
[2020-03-14 05:34] LABS: Calcium 6.8 mg/dL (8.5-10.1); Potassium 4.6 mmol/L (3.5-5.1)
[2020-03-14 05:36] LABS: BUN/Creatinine Ratio 13.8
[2020-03-14 05:41] LABS: Band Neutrophils % (manual) 1; Lymphocytes % (manual) 83 (10.0-50.0); Monocytes % (manual) 3 (0-12)
[2020-03-14] MEDS: FUROSEMIDE 20 MG/2 ML VIAL IV SCH ×2 (05:59→17:01)
[2020-03-14] MEDS: ALBUTEROL SULF HFA 90MCG INH 200DOSE IN SCH (06:00)
--- NOTE | 2020-03-14 06:26 | NUR ---
0600 SCHEDULED MDI NON ADMINISTERED. PT PENDING COVID 19 RESULTS. PT IS ON ROOM AIR, SPO2 96%, HR 60, RR 17. NO S/S OF RESPIRATORY DISTRESS. LUNGS ARE CLEAR/DIMINISHED T/O. WILL CONTINUE TO MONITOR.
--- NOTE | 2020-03-14 06:53 | NUR ---
closing shift notes pt has no s/s of distress or pain at this time will endorse care to day shift RN
[2020-03-14] MEDS ORDERED: SODIUM CHL 0.9% 1000 ML BAG XX ONE (07:00)
[2020-03-14 09:00] VITALS: BP 128/58
[2020-03-14] MEDS: CYANOCOBALAMIN 500 MCG TAB PO SCH (10:10)
[2020-03-14] MEDS: CARVEDILOL 3.125 MG TAB PO SCH ×2 (10:10→22:53)
[2020-03-14] MEDS: DexAMETHasone 4 MG TAB PO SCH (10:10)
[2020-03-14 12:00] VITALS: BP 130/57
--- NOTE | 2020-03-14 14:27 | NUR ---
RECEIVED PT IN ROOM 292 B AT APPROX. 1345. [place] SPEAKING ONLY. VSS. WILL CONTINUE TO MONITOR.
[2020-03-14 16:35] VITALS: BP 120/64
--- NOTE | 2020-03-14 18:54 | NUR ---
discharge instructions given to pt. verbalized understanding. all appropriate paperwork signed. iv and tele box removed. pt discharged home with family.
--- NOTE | 2020-03-14 19:46 | NUR ---
Opening Shift Note Received report and assumed care of patient. Patient is awake and alert. No signs or symptoms of distress noted, patient currently denies pain. Instructed patient on plan of care and to call for assistance as needed. Will continue to monitor.
[2020-03-14 22:00] VITALS: BP 131/57
--- NOTE | 2020-03-14 22:35 | NUR ---
Dialysis Complete Dialysis is complete. Per dialysis nurse, 2.5 L were removed. No signs or symptoms of distress noted. Will continue to monitor.
[2020-03-15 05:00] VITALS: BP 128/56
[2020-03-15] MEDS: FUROSEMIDE 20 MG/2 ML VIAL IV SCH ×2 (06:31→18:41)
[2020-03-15 06:42] LABS: Hemoglobin 8.4 g/dL (13.5-17.5); Platelet Count (auto) 25 10^3/uL (140-450)
[2020-03-15 06:44] LABS: Hematocrit 24.3 % (41.0-53.0); Mean Corpuscular Hemoglobin 31.4 pg (28.0-32.0); Mean Corpuscular Hgb Conc. 34.6 g/dL (32.0-36.0); Mean Corpuscular Volume 90.8 fL (80.0-100.0); Red Blood Cells 2.67 10^6/uL (4.5-5.90); Red Cell Distribution Width 13.7 % (11.8-14.3); White Blood Cell 5.3 10^3/uL (4.4-10.8)
[2020-03-15 06:48] LABS: Band Neutrophils % (manual) 0; Basophils % (manual) 0 (0.0-2.0); Blast Cells 0; Eosinophils % (manual) 0 (0-7); Metamyelocytes % 0; Myelocytes % 0; Promyelocytes % 0; Reactive Lymphocytes 0
[2020-03-15 06:58] LABS: BUN/Creatinine Ratio 10.9; Potassium 3.9 mmol/L (3.5-5.1)
[2020-03-15 07:03] LABS: Lymphocytes % (manual) 83 (10.0-50.0); Monocytes % (manual) 2 (0-12)
--- NOTE | 2020-03-15 07:30 | NUR ---
Opening Shift Note Assumed care of patient, awake and alert. No S/S of distress/SOB or pain. Instructed on POC and to call for assist PRN, will continue to monitor for changes Q1hr and PRN. NIBBLER OPERATOR AT BEDSIDE.
[2020-03-15 09:00] VITALS: BP 93/45
[2020-03-15] MEDS: CARVEDILOL 3.125 MG TAB PO SCH ×2 (10:00→22:10)
[2020-03-15] MEDS: DexAMETHasone 4 MG TAB PO SCH (10:28)
[2020-03-15] MEDS: CYANOCOBALAMIN 500 MCG TAB PO SCH (10:29)
[2020-03-15] MEDS: PIPERACILLIN-TAZOB 2.25GM 50 ML IV SCH ×2 (10:30→22:09)
[2020-03-15 12:47] VITALS: BP 122/52
[2020-03-15] MEDS: methylPREDNISolone SOD SUCC 125 MG/2 ML VL IV SCH ×2 (14:27→22:09)
--- NOTE | 2020-03-15 16:30 | NUR ---
FAMILY UPDATED WITH PT'S STATUS AND PLAN OF CARE.
[2020-03-15 16:41] VITALS: BP 122/57
--- NOTE | 2020-03-15 19:30 | NUR ---
CLOSING NOTES Patient awake and alert. No S/S of distress/SOB or pain. REPORT GIVEN TO ОЛЬГА OHARA
--- NOTE | 2020-03-15 19:35 | NUR ---
Opening Shift Note Received report from Jinny ROLON. Assumed care of patient, awake and alert. No S/S of distress/SOB or pain. Instructed on POC and to call for assist PRN. Fall precaution measures in place, will continue to monitor for changes Q1hr and PRN.
[2020-03-15 22:00] VITALS: BP 128/59
--- NOTE | 2020-03-15 22:20 | NUR ---
IV removal IV site leaking. IV DC'd with clean sterile technique, catheter fully intact. Pressure dressing applied to site. Patient tolerated well.
--- NOTE | 2020-03-15 22:30 | NUR ---
IV insertion IV access obtained, via clean sterile technique by inserting 22 gauge catheter at L forearm after 1 attempt. IV secured properly. No trauma to site. Patient tolerated well.
[2020-03-16 04:57] VITALS: BP 116/58
[2020-03-16] MEDS: methylPREDNISolone SOD SUCC 125 MG/2 ML VL IV SCH ×3 (05:58→21:56)
[2020-03-16] MEDS: FUROSEMIDE 20 MG/2 ML VIAL IV SCH ×2 (05:58→17:38)
--- NOTE | 2020-03-16 07:30 | NUR ---
Received call from tele monitors Received call from Tele monitor room regarding change in patients rhythm. Will assess patient, will page funeral professional.
--- NOTE | 2020-03-16 07:35 | NUR ---
Opening shift note Assumed care of patient from NOC RN. Patient is AOx4, so signs and symptoms of distress or shortness of breath noted. Bed is in lowest locked position,side rails up x2, and call light is within reach. Updated patient on plan of care and patient verbalized understanding. Will continue to monitor q1hr and PRN.
--- NOTE | 2020-03-16 07:45 | NUR ---
Paged labor relations or personnel negotiator hospitalist Paged foil stamp operator, awaiting call back.
[2020-03-16 08:35] VITALS: BP 121/73
[2020-03-16] MEDS: DexAMETHasone 4 MG TAB PO SCH (09:49)
[2020-03-16] MEDS: CYANOCOBALAMIN 500 MCG TAB PO SCH (09:49)
[2020-03-16] MEDS: PIPERACILLIN-TAZOB 2.25GM 50 ML IV SCH ×2 (09:49→21:56)
[2020-03-16] MEDS: CARVEDILOL 3.125 MG TAB PO SCH ×2 (09:52→21:57)
--- NOTE | 2020-03-16 10:41 | NUR ---
Physician rounding Dr. Adam at nurses station, updated MD on patient status, no new orders received. Updated MD on patients heart rhythm, per MD continue to monitor no new order received.
[2020-03-16 13:00] VITALS: BP 110/60
--- NOTE | 2020-03-16 16:44 | NUR ---
Nutrition Assessment Notes Please refer to link for full assessment notes. Est Energy needs: 7454-8289 kcals (30-35 kcal/kgBW) Est Protein needs: 69-75 gms/day (1.1-1.2 gm/kgBW) Will continue to monitor and reassess prn. Addendum: 03/16/20 at [address] Amended: Links added.
[2020-03-16 17:00] VITALS: BP 115/64
--- NOTE | 2020-03-16 19:08 | NUR ---
END OF SHIFT NOTE Endorsed care to NOC ОЛЬГА Ibarra. No s/s of SOB or distress noted.
[2020-03-16 22:00] VITALS: BP 121/60
[2020-03-17 05:00] VITALS: BP 119/55
[2020-03-17] MEDS: methylPREDNISolone SOD SUCC 125 MG/2 ML VL IV SCH (05:58)
[2020-03-17] MEDS: FUROSEMIDE 20 MG/2 ML VIAL IV SCH ×2 (05:59→17:35)
[2020-03-17 06:53] LABS: Hemoglobin 7.8 g/dL (13.5-17.5); Red Cell Distribution Width 13.7 % (11.8-14.3); White Blood Cell 4.1 10^3/uL (4.4-10.8)
[2020-03-17 06:54] LABS: Hematocrit 22.3 % (41.0-53.0); Mean Corpuscular Hemoglobin 31.8 pg (28.0-32.0); Mean Corpuscular Hgb Conc. 34.8 g/dL (32.0-36.0); Mean Corpuscular Volume 91.6 fL (80.0-100.0); Red Blood Cells 2.44 10^6/uL (4.5-5.90)
[2020-03-17] MEDS ORDERED: SODIUM CHL 0.9% 1000 ML BAG XX ONE (07:00)
[2020-03-17 07:03] LABS: Albumin 2.3 g/dL (3.4-5.0); Calcium 7.5 mg/dL (8.5-10.1); Platelet Count (auto) 22 10^3/uL (140-450); Potassium 4.4 mmol/L (3.5-5.1)
[2020-03-17 07:05] LABS: Band Neutrophils % (manual) 0; Basophils % (manual) 0 (0.0-2.0); Blast Cells 0; Eosinophils % (manual) 0 (0-7); Metamyelocytes % 0; Myelocytes % 0; Promyelocytes % 0; Reactive Lymphocytes 0
[2020-03-17 07:07] LABS: BUN/Creatinine Ratio 11.7; Bilirubin, Total 0.8 mg/dL (0.2-1.0); Total Protein 4.8 g/dL (6.4-8.2)
[2020-03-17 07:58] LABS: Lymphocytes % (manual) 50 (10.0-50.0); Monocytes % (manual) 3 (0-12)
[2020-03-17 09:16] VITALS: BP 109/55
[2020-03-17] MEDS: CYANOCOBALAMIN 500 MCG TAB PO SCH (09:31)
[2020-03-17] MEDS: DexAMETHasone 4 MG TAB PO SCH (09:31)
[2020-03-17] MEDS: PIPERACILLIN-TAZOB 2.25GM 50 ML IV SCH (09:32)
[2020-03-17] MEDS: CARVEDILOL 3.125 MG TAB PO SCH ×2 (09:32→21:35)
[2020-03-17 13:05] VITALS: BP 124/65
[2020-03-17 13:13] VITALS: BP 124/65
--- NOTE | 2020-03-17 13:54 | NUR ---
Spoke to [facility] regarding schedule date, per knockout machine operator, will page acute nurse to call back. Awaiting to call back.
--- NOTE | 2020-03-17 15:10 | NUR ---
Paged [facility] again regarding dialysis schedule , awaiting to call back.
--- NOTE | 2020-03-17 15:20 | NUR ---
Received a call from Dialysis nurse stated will come around 6 PM and will be finished around 9 PM, patient and his daughter notified.
--- NOTE | 2020-03-17 16:00 | NUR ---
Patient has no ABC wrist band, new wrist band ordered.
[2020-03-17 17:00] VITALS: BP 119/58
--- NOTE | 2020-03-17 18:26 | NUR ---
Election Judge at bedside stated ABC wrist band will be different number from the previous one. Blood bank called stated they are on break. Will call back.
--- NOTE | 2020-03-17 18:47 | NUR ---
Spoke to Blood bank again regarding new ABC band, per blood bank will call back when it ready.
--- NOTE | 2020-03-17 19:40 | NUR ---
Opening Shift Note Assumed care of patient, awake and alert. No S/S of distress/SOB or pain. Patient undergoing dialysis at this tie. Instructed on POC and to call for assist PRN, will continue to monitor for changes Q1hr and PRN.
--- NOTE | 2020-03-17 19:45 | NUR ---
Blood bank called regarding patient's platelet ready at this time. Care continued.
--- NOTE | 2020-03-17 20:00 | NUR ---
Platelet obtained and given to [facility] dialysis nurse to be given to patient as ordered by MD. Care continued.
--- NOTE | 2020-03-17 20:59 | NUR ---
Called Fátima Pizano- patient's daughter, verified password. Discharge instructions given to the patient's daughter. All questions and concerns addressed, patient's daughter Fátima verbalized understanding. Fátima was also notified that patient is discharged after dialysis is completed. Patient's daughter will shrimp picker the patient upon discharge. Discharge instructions will also be given/explained to the patient. Will call daughter once dialysis is completed and patient is ready for discharge. Care continued.
[2020-03-17] MEDS ORDERED: EPOETIN ALFA 4,000 UNIT/ML VL SC ONE (21:00)
--- NOTE | 2020-03-17 21:28 | NUR ---
Dialysis completed. Per dialysis nurse, 3 liters out. Patient tolerated procedure well. Will call daughter for transportation. Care continued.
[2020-03-17 22:00] VITALS: BP 129/50
--- NOTE | 2020-03-17 22:05 | NUR ---
Discharge instructions given as ordered to patient and patient's daughter. Encourage to follow up with PMD as instructed. All questions and concerns addressed. Patient and patient's daughter verbalized understanding. Medication reconciliation form completed and copy given to patient. No home medications held in Pharmacy returned to patient, and needed vaccine refused. IV removed with catheter intact, pressure dressing applied. Telemetry unit returned to ICU. Patient taken to vehicle via wheelchair with all personal belongings, accompanied by staff and met by family member. No distress noted at time of departure. Addendum: 03/18/20 at 0056 by Randee Kemp RN No home medications in pharmacy.
== END 2020-03-17 22:05 | disposition home or self-care (01) | DRG 840 ==
LOC: ER 13:19 → TELE 13:20 → TELE-EAST 22:50 → TELE-WESTW 03-14 13:50
PROVIDERS: ADMIT Hospitalist; ATTEND Internal Medicine Pulmonary Disease
PROC: 30233N1 Transfusion of Nonautologous Red Blood Cells into Peripheral Vein, Percutaneous Approach (ICD-10-PCS; principal; 2020-03-12)
PROC: 30233R1 Transfusion of Nonautologous Platelets into Peripheral Vein, Percutaneous Approach (ICD-10-PCS; 2020-03-13)
PROC: 5A1D70Z Performance of Urinary Filtration, Intermittent, Less than 6 Hours Per Day (ICD-10-PCS; 2020-03-14)
PROC: 5A1D70Z Performance of Urinary Filtration, Intermittent, Less than 6 Hours Per Day (ICD-10-PCS; 2020-03-17)
DX: C91.10 Chronic lymphocytic leukemia of B-cell type not having achieved remission (principal); I50.33 Acute on chronic diastolic (congestive) heart failure; N18.6 End stage renal disease; E43 Unspecified severe protein-calorie malnutrition; I13.2 Hypertensive heart and chronic kidney disease with heart failure and with stage 5 chronic kidney disease, or end stage renal disease; C83.10 Mantle cell lymphoma, unspecified site; J44.9 Chronic obstructive pulmonary disease, unspecified; E03.9 Hypothyroidism, unspecified; K75.9 Inflammatory liver disease, unspecified; Z20.828 Contact with and (suspected) exposure to other viral communicable diseases; D63.1 Anemia in chronic kidney disease; I25.10 Atherosclerotic heart disease of native coronary artery without angina pectoris; T45.1X5A Adverse effect of antineoplastic and immunosuppressive drugs, initial encounter; D69.59 Other secondary thrombocytopenia; Z86.19 Personal history of other infectious and parasitic diseases; Z99.2 Dependence on renal dialysis; Z87.891 Personal history of nicotine dependence; Z91.19 Patient's noncompliance with other medical treatment and regimen; Z79.02 Long term (current) use of antithrombotics/antiplatelets; Z80.0 Family history of malignant neoplasm of digestive organs; Z79.899 Other long term (current) drug therapy; Z90.49 Acquired absence of other specified parts of digestive tract; Z83.3 Family history of diabetes mellitus; Y92.89 Other specified places as the place of occurrence of the external cause; Z68.22 Body mass index [BMI] 22.0-22.9, adult
CPT/HCPCS: 36415; 71045; 80048; 80053; 80061; 80307; 81001; 83036; 83880; 84484; 85007; 85027; 86850; 86900; 86901; 86920; 87040; 87081; 87086; 87426; 90935; G0378; J1642; J2543